=== PATIENT | male | born 1935 | race Caucasian/White ===

== ENCOUNTER 2018-01-19 06:46 | Emergency (ER) | payer MEDICARE, OTHER ==
--- NOTE | 2018-01-19 08:07 | ER Document Report ---
ED General - General Chief Complaint: Abrasion(s) Stated Complaint: LACERATION Time Seen by Provider: 01/19/18 07:55 Mode of Arrival: Ambulatory Information source: Patient Notes: 83-year-old male with hypertension, hyperlipidemia, previous aortic valve surgery presents with an skin tear to his right elbow. Patient states that yesterday he tripped and fell in his home landing on the rug. He states that he did not hit his head or have any preceding chest pain, dizziness, shortness of breath. Patient attempted to clean the wound but states it continued to bleed. He is currently on Pradaxa. TRAVEL OUTSIDE OF THE [place] IN LAST 30 DAYS: No - HPI Onset: Yesterday Onset/Duration: Gradual Quality of pain: Achy Severity: Mild Associated symptoms: None Exacerbated by: Denies Relieved by: Denies Similar symptoms previously: No Recently seen / treated by doctor: No - Related Data Allergies/Adverse Reactions: No Known Allergies Allergy (Verified 08/21/14 11:11) Past Medical History - General Information source: Patient - Social History Smoking Status: Never Smoker Frequency of alcohol use: Occasional Drug Abuse: None Lives with: Family Family History: Reviewed & Not Pertinent Patient has suicidal ideation: No Patient has homicidal ideation: No - Past Medical History Cardiac Medical History: Reports: Hx Hypercholesterolemia, Hx Hypertension - adalat toprol Denies: Hx Heart Attack Pulmonary Medical History: Denies: Hx Asthma Neurological Medical History: Denies: Hx Cerebrovascular Accident, Hx Seizures GI Medical History: Denies: Hx Hepatitis, Hx Hiatal Hernia, Hx Ulcer Musculoskeletal Medical History: Infectious Medical History: Denies: Hx Hepatitis Past Surgical History: Reports: Hx Cardiac Surgery - Open Heart; Aorta and Valve involvment, Hx Orthopedic Surgery - Bilat knee replacements, Left rotoator cuff, right shoulder hardware. Denies: Hx Open Heart Surgery, Hx Pacemaker - Immunizations Hx Diphtheria, Pertussis, Tetanus Vaccination: Yes Review of Systems - Review of Systems Notes: REVIEW OF SYSTEMS: CONSTITUTIONAL : Denies fever, chills, or sweats. Denies recent illness. Denies weight loss, recent hospitalizations. EENT: Denies visual changes, eye pain. Denies nasal or sinus congestion or discharge. Denies sore throat, oral lesions, difficulty swallowing. CARDIOVASCULAR: Denies chest pain. Denies palpitations. Denies lower extremity edema. RESPIRATORY: Denies cough, cold, or chest congestion. Denies shortness of breath, wheezing. GASTROINTESTINAL: Denies abdominal pain or distention. Denies nausea, vomiting , or diarrhea. Denies blood in vomitus, stools, or per rectum. Denies black, tarry stools. Denies constipation. GENITOURINARY: Denies difficulty urinating, painful urination, frequency, blood in urine, or vaginal discharge. MUSCULOSKELETAL: Denies back or neck pain or stiffness. Denies joint pain or swelling. SKIN: + 4 cm skin tear of the right elbow HEMATOLOGIC : Denies easy bruising or bleeding. LYMPHATIC: Denies swollen glands. NEUROLOGICAL: Denies confusion or altered mental status. Denies passing out or loss of consciousness. Denies dizziness or lightheadedness. Denies headache. Denies weakness or paralysis. Denies problems difficulty with ambulation, slurred speech. Denies sensory loss, numbness, or tingling. Denies seizures. PSYCHIATRIC: Denies anxiety or stress. Denies depression, suicidal ideation, or homicidal ideation. Denies visual or auditory hallucinations. Physical Exam - Vital signs Vitals: Temp Pulse Resp BP Pulse Ox 98.1 F 68 18 122/62 98 01/19/18 06:51 01/19/18 06:51 01/19/18 06:51 01/19/18 06:51 01/19/18 06:51 Interpretation: No: Hypertensive, Febrile - Notes Notes: PHYSICAL EXAMINATION: GENERAL: Well-appearing, well-nourished and in no acute distress. HEAD: Atraumatic, normocephalic. EYES: Pupils equal round and reactive to light, extraocular movements intact, sclera anicteric, conjunctiva are normal. ENT: Nares patent, oropharynx clear without exudates. Moist mucous membranes. NECK: Normal range of motion, supple without lymphadenopathy LUNGS: Breath sounds clear to auscultation bilaterally and equal. No wheezes rales or rhonchi. HEART: Regular rate and rhythm without murmurs ABDOMEN: Soft, nontender, nondistended abdomen. No guarding, no rebound. No masses appreciated. Musculoskeletal: Normal range of motion, no pitting or edema. No cyanosis. Full range of motion of the right elbow. Radial pulse intact. Sensation intact. NEUROLOGICAL: Cranial nerves grossly intact. Normal speech, normal gait. Normal sensory, motor exams PSYCH: Normal mood, normal affect. SKIN: 4 cm skin tear of the right elbow with mild oozing blood Course - Re-evaluation Re-evalutation: 01/19/18 08:07 83-year-old male presents after a trip and fall yesterday where he sustained a large skin tear to the right elbow. Patient denies any head injury, loss of consciousness. He denies any preceding chest pain shortness of breath or dizziness. Patient was seen by myself upon arrival. Vital signs were reviewed. Patient is afebrile, normotensive and not hypoxic. Patient does not appear toxic or dehydrated. They are in no acute distress. Previous medical records and nursing notes reviewed. Significant findings include a large skin tear of the right elbow. Wound was thoroughly irrigated, Surgicel placed and a bulky dressing was also placed. Tetanus is up-to-date. Patient advised to leave the bandage on for the next 48 hours. Patient provided the opportunity to ask questions, and express concerns. Discharge instructions discussed. Patient is agreeable with discharge home. Return indications explained and discussed with the patient who displays understanding. Patient encouraged to return to the emergency department immediately with any concerns. - Vital Signs Vital signs: Temp Pulse Resp BP Pulse Ox 98.0 F 63 16 135/59 H 97 01/19/18 08:28 01/19/18 08:28 01/19/18 08:28 01/19/18 08:28 01/19/18 08:28 Discharge - Discharge Clinical Impression: Fall Qualifiers: Encounter type: initial encounter Qualified Code(s): W19.XXXA - Unspecified fall, initial encounter Elbow contusion Qualifiers: Encounter type: initial encounter Laterality: right Qualified Code(s): S50.01XA - Contusion of right elbow, initial encounter Skin tear of elbow without complication Qualifiers: Encounter type: initial encounter Laterality: right Qualified Code(s): S51.011A - Laceration without foreign body of right elbow, initial encounter Condition: Good Disposition: HOME, SELF-CARE Instructions: Antibiotic Ointment Protection ([facility]), Skin Tear ([facility]), Soap Cleansing ([facility]) Additional Instructions: Please leave bandage in place for the next 48 hours. Keep clean and dry. Afterwards cleaned normally. You can expect some of the skin to off. This will be replaced with new skin over the next few weeks. If he noticed increased pain or redness around the site please return to the emergency room. Referrals: JUDI ZULUAGA MD [Primary Care Provider] - Follow up as needed
[2018-01-19 08:30] VITALS: BP 135/59
== END 2018-01-19 08:30 | disposition home or self-care (01) ==
LOC: ER 06:46
DX: S51.011A Laceration without foreign body of right elbow, initial encounter (principal); S50.01XA Contusion of right elbow, initial encounter; W01.0XXA Fall on same level from slipping, tripping and stumbling without subsequent striking against object, initial encounter; Y92.009 Unspecified place in unspecified non-institutional (private) residence as the place of occurrence of the external cause; E78.00 Pure hypercholesterolemia, unspecified; I10 Essential (primary) hypertension; Z96.653 Presence of artificial knee joint, bilateral
CPT/HCPCS: 99282

== ENCOUNTER 2018-01-23 05:55 | Emergency (ER) | payer MEDICARE, OTHER ==
[2018-01-23] MEDS ORDERED: BACITRACIN ZINC OINTMENT 15 GM TP ONE (08:36)
[2018-01-23] MEDS ORDERED: VANCOMYCIN HCL INJ 1000 MG VIAL IV ONE (08:36)
[2018-01-23] MEDS ORDERED: PIPERACILLIN/TAZOBACTAM 3.375 GM VIAL IV ONE (08:36)
[2018-01-23 10:09] LABS: ABSOLUTE EOSINOPHILS # (AUTO) 0.3 10^3/uL (0.0-0.6); ABSOLUTE LYMPHOCYTES (AUTO) 0.9 10^3/uL (0.5-4.7); ABSOLUTE MONOCYTES (AUTO) 0.6 10^3/uL (0.1-1.4); ABSOLUTE NEUT (AUTO) 4.7 10^3/uL (1.7-8.2); BASOPHILS % (AUTO) 0.7 % (0-2); EOSINOPHILS % (AUTO) 4.4 % (0-6); HEMATOCRIT 37.2 % (37.9-51.0); HEMOGLOBIN 12.6 g/dL (13.5-17.0); LYMPHOCYTES % (AUTO) 13.9 % (13-45); MEAN CORPUSCULAR HEMOGLOBIN 32.1 pg (27.0-33.4); MEAN CORPUSCULAR HGB CONC 33.8 g/dL (32.0-36.0); MEAN CORPUSCULAR VOLUME 95 fl (80-97); MONOCYTES % (AUTO) 8.9 % (3-13); PLATELET COUNT 191 10^3/uL (150-450); RED BLOOD COUNT 3.92 10^6/uL (4.35-5.55); RED CELL DISTRIBUTION WIDTH 14.4 % (11.5-14.0); SEGMENTED NEUTROPHILS % (AUTO) 72.1 % (42-78); TOTAL CELLS COUNTED % (AUTO) 100 %; WHITE BLOOD COUNT 6.5 10^3/uL (4.0-10.5)
[2018-01-23 10:17] LABS: PROTHROMBIN TIME 14.8 SEC (11.4-15.4)
[2018-01-23 10:18] LABS: PARTIAL THROMBOPLASTIN TIME 36.6 SEC (23.5-35.8)
[2018-01-23 11:23] LABS: ALANINE AMINOTRANSFERASE 27 U/L (21-72); ALBUMIN 4.1 g/dL (3.5-5.0); ALKALINE PHOSPHATASE 64 U/L (38-126); ANION GAP 12 (5-19); ASPARTATE AMINO TRANSFERASE 41 U/L (17-59); BILIRUBIN,DIRECT 0.3 mg/dL (0.0-0.4); BLOOD UREA NITROGEN 16 mg/dL (7-20); CARBON DIOXIDE 27 mmol/L (22-30); CHLORIDE 103 mmol/L (98-107); GLUCOSE 104 mg/dL (75-110); POTASSIUM 4.2 mmol/L (3.6-5.0); SODIUM 141.8 mmol/L (137-145); TOTAL PROTEIN 7.3 g/dL (6.3-8.2)
--- NOTE | 2018-01-23 11:40 | ER Document Report ---
ED Wound - General Chief Complaint: Wound Recheck Stated Complaint: DRESSING CHANGE Time Seen by Provider: 01/23/18 06:48 Mode of Arrival: Ambulatory Information source: Patient TRAVEL OUTSIDE OF THE [place] IN LAST 30 DAYS: No - HPI Occurred: Last week Onset/Duration: Sudden Quality of pain: No pain Severity: None Pain Level: 0 Context: Injury Skin Temperature: Warm Skin Color: Normal Capillary refill: < 3 seconds Sensations intact: Yes Distal pulses present: Yes Associated Symptoms: Redness - Related Data Allergies/Adverse Reactions: No Known Allergies Allergy (Verified 08/21/14 11:11) Past Medical History - Social History Smoking Status: Never Smoker Family History: Reviewed & Not Pertinent Patient has suicidal ideation: No Patient has homicidal ideation: No - Past Medical History Cardiac Medical History: Reports: Hx Hypercholesterolemia, Hx Hypertension - adalat toprol Denies: Hx Heart Attack Pulmonary Medical History: Denies: Hx Asthma Neurological Medical History: Denies: Hx Cerebrovascular Accident, Hx Seizures Renal/ Medical History: Denies: Hx Peritoneal Dialysis GI Medical History: Denies: Hx Hepatitis, Hx Hiatal Hernia, Hx Ulcer Musculoskeletal Medical History: Infectious Medical History: Denies: Hx Hepatitis Past Surgical History: Reports: Hx Cardiac Surgery - Open Heart; Aorta and Valve involvment, Hx Orthopedic Surgery - Bilat knee replacements, Left rotoator cuff, right shoulder hardware. Denies: Hx Open Heart Surgery, Hx Pacemaker - Immunizations Hx Diphtheria, Pertussis, Tetanus Vaccination: Yes Review of Systems - Review of Systems Constitutional: denies: Chills, Fever EENT: No symptoms reported Cardiovascular: denies: Chest pain, Palpitations Respiratory: No symptoms reported Gastrointestinal: No symptoms reported Genitourinary: No symptoms reported Male Genitourinary: No symptoms reported Musculoskeletal: No symptoms reported Skin: Lesions Hematologic/Lymphatic: No symptoms reported Neurological/Psychological: No symptoms reported -: Yes All other systems reviewed and negative Physical Exam - Vital signs Vitals: Temp Pulse Resp BP Pulse Ox 97.9 F 64 18 120/60 97 01/23/18 05:56 01/23/18 05:56 01/23/18 05:56 01/23/18 05:56 01/23/18 05:56 - General General appearance: Appears well, Alert In distress: None - Respiratory Respiratory status: No respiratory distress Chest status: Nontender Breath sounds: Normal Chest palpation: Normal - Cardiovascular Rhythm: Regular Heart sounds: Normal auscultation Murmur: No - Abdominal Inspection: Normal Distension: No distension Bowel sounds: Normal Tenderness: Nontender Organomegaly: No organomegaly - Back Back: Normal, Nontender - Neurological Neuro grossly intact: Yes Cognition: Normal Orientation: AAOx4 [place] Coma Scale Eye Opening: Spontaneous [place] Coma Scale Verbal: Oriented [place] Coma Scale Motor: Obeys Commands [place] Coma Scale Total: 15 Speech: Normal Motor strength normal: LUE, RUE, LLE, RLE Sensory: Normal - Psychological Associated symptoms: Normal affect, Normal mood - Skin Skin Temperature: Warm Skin Moisture: Dry Skin Color: Erythema, Ecchymosis Skin Turgor: Loose Skin irregularity: Erythema Location of irregularity: Extremities Character of irregularity: Erythematous Irregularity with: Tenderness Course - Vital Signs Vital signs: Temp Pulse Resp BP Pulse Ox 97.9 F 84 16 138/84 H 99 01/23/18 05:56 01/23/18 12:10 01/23/18 12:10 01/23/18 12:10 01/23/18 12:10 - Laboratory Result Diagrams: 01/23/18 09:50 01/23/18 09:50 Laboratory results interpreted by me: 01/23/18 01/23/18 09:50 09:50 RBC 3.92 L Hgb 12.6 L Hct 37.2 L RDW 14.4 H APTT 36.6 H Discharge - Discharge Clinical Impression: Wound infection Condition: Stable Disposition: HOME, SELF-CARE Instructions: Delayed Wound Closure ([facility]), Dressing Instructions for Open Wounds ([facility]), Wound Infection ([facility]) Additional Instructions: Please follow-up at the wound clinic in 3 days for wound check. Return to the emergency room if her condition worsens. Prescriptions: Clindamycin HCl 300 mg PO TID 10 Days #30 capsule Referrals: JUDI ZULUAGA MD [Primary Care Provider] - Follow up as needed WOUND CARE [Outside] - Follow up as needed
[2018-01-23 13:02] VITALS: BP 138/84
== END 2018-01-23 12:14 | disposition home or self-care (01) ==
LOC: ER 05:55
DX: T14.8XXA Other injury of unspecified body region, initial encounter (principal); L08.9 Local infection of the skin and subcutaneous tissue, unspecified; X58.XXXA Exposure to other specified factors, initial encounter; I10 Essential (primary) hypertension
CPT/HCPCS: 99283; 96365; 96367; 36415; 87040; 87070; 87205; 85025; 85610; 85730; 87077; 80053; 87186; J3490; J3370; J2543

== ENCOUNTER 2018-12-09 01:44 | Inpatient (IN) | payer MEDICARE, OTHER ==
--- NOTE | 2018-12-09 02:35 | ER Document Report ---
ED General - General Chief Complaint: Passed Out Prior to Arrival Stated Complaint: WEAKNESS Time Seen by Provider: 12/09/18 02:34 Notes: Patient is a pleasant 83-year-old male who presents with complaint of increasing swelling in his legs, feeling of chills and feeling unwell starting tonight. He did have a previous episode of syncope back on December 04. He says he passed out when he went to stand up. He has not had any further syncopal episodes or dizziness upon standing since then. He says been doing well since then other than he has increased swelling in his legs over the last 24-48 hrs. He says this is happened in the past. He does have a history of atrial flutter. He is on Pradaxa and metoprolol for that. He denies any cough or congestion. Denies any difficulty breathing. No dysuria. No abdominal pain. No chest pain. No other complaints at this time. TRAVEL OUTSIDE OF THE [place] IN LAST 30 DAYS: No - Related Data Allergies/Adverse Reactions: No Known Allergies Allergy (Verified 08/21/14 11:11) Past Medical History - Social History Smoking Status: Unknown if Ever Smoked Frequency of alcohol use: None Drug Abuse: None Family History: Reviewed & Not Pertinent - Past Medical History Cardiac Medical History: Reports: Hx Hypercholesterolemia, Hx Hypertension - adalat toprol Denies: Hx Heart Attack Pulmonary Medical History: Denies: Hx Asthma Neurological Medical History: Denies: Hx Cerebrovascular Accident, Hx Seizures Renal/ Medical History: Denies: Hx Peritoneal Dialysis GI Medical History: Denies: Hx Hepatitis, Hx Hiatal Hernia, Hx Ulcer Musculoskeletal Medical History: Infectious Medical History: Denies: Hx Hepatitis Past Surgical History: Reports: Hx Cardiac Surgery - Open Heart; Aorta and Valve involvment, Hx Orthopedic Surgery - Bilat knee replacements, Left rotoator cuff, right shoulder hardware. Denies: Hx Open Heart Surgery, Hx Pacemaker - Immunizations Hx Diphtheria, Pertussis, Tetanus Vaccination: Yes Review of Systems - Review of Systems Notes: My Normal Review Basic REVIEW OF SYSTEMS: CONSTITUTIONAL : Chills starting tonight. EENT: Denies eye, ear, throat, or mouth pain or symptoms. Denies nasal or sinus congestion. CARDIOVASCULAR: Denies chest pain. RESPIRATORY: Denies cough, cold, or chest congestion. Denies shortness of breath, difficulty breathing, or wheezing. GASTROINTESTINAL: Denies abdominal pain. Denies nausea, vomiting, or diarrhea. GENITOURINARY: Denies difficulty urinating, painful urination, burning, frequency, or blood in urine. MUSCULOSKELETAL: Lower extremity edema SKIN: Denies rash or skin lesions. HEMATOLOGIC : On Pradaxa NEUROLOGICAL: Denies altered mental status or loss of consciousness. Denies headache. Denies weakness or paralysis or loss of use of either side. Denies problems with gait or speech. Denies sensory or motor loss. ALL OTHER SYSTEMS REVIEWED AND NEGATIVE. Physical Exam - Vital signs Vitals: Resp BP Pulse Ox 20 107/74 94 12/09/18 02:21 12/09/18 02:21 12/09/18 02:21 - Notes Notes: General Appearance: Well nourished, alert, cooperative, no acute distress, no obvious discomfort. Vitals: reviewed, See vital signs table. Eyes: PERRL, EOMI, Conjuctiva clear Mouth: No decreasd moisture Throat: No tonsillar inflammation, No airway obstruction, No lymphadenopathy Neck: Supple, no neck tenderness, No thyromegaly Lungs: No wheezing, No rales, No rhonci, No accessory muscle use, good air exchange bilaterally. Heart: Rapid irregular heartbeat Abdomen: Normal BS, soft, No rigidity, No abdominal tenderness, No guarding, no rebound, no abdominal masses, no organomegaly Extremities: strength 5/5 in all extremities, good pulses in all extremities, no swelling or tenderness in the extremities, 2+ bilateral lower extremity edema. Skin: warm, dry, appropriate color, no rash Neuro: speech clear, oriented x 3, normal affect, responds appropriately to questions. Course - Re-evaluation Re-evalutation: 12/09/18 08:38 Exact cause of patient's fever is unclear. After fever resolved she still had A. fib with RVR and therefore I did order Cardizem drip. I did speak with the hospitalist, Dr. Falcon, who agreed to evaluate the patient. Dr. Falcon went to evaluate the patient he was started having borderline low blood pressure and therefore Cardizem was not given and he decided given digoxin instead. He is to admit the patient to his service for further work-up. Patient was agreeable plan. Patient otherwise is medically stable and is denying any chest pain or shortness of breath. I did give a small dose of Lasix due to the increasing swelling in his legs. I suspect that the increase in swelling is related to his A. fib with RVR. Patient not given anticoagulation as he is already anticoagulated with Pradaxa. Dictation of this chart was performed using voice recognition software; therefore, there may be some unintended grammatical errors. - Vital Signs Vital signs: Temp Pulse Resp BP Pulse Ox 98.7 F 21 H 107/61 97 12/09/18 07:01 12/09/18 07:41 12/09/18 07:41 12/09/18 07:41 - Laboratory Result Diagrams: 12/09/18 03:11 12/09/18 03:11 Laboratory results interpreted by me: 12/09/18 12/09/18 12/09/18 03:11 03:11 03:11 WBC 12.3 H RBC 4.29 L Seg Neuts % (Manual) 93 H Lymphocytes % (Manual) 4 L Monocytes % (Manual) 2 L Abs Neuts (Manual) 11.4 H Sodium 133.1 L BUN 24 H Total Bilirubin 1.6 H AST 62 H Creatine Kinase 220 H NT-Pro-B Natriuret Pep Urine Ketones 12/09/18 12/09/18 03:11 03:55 WBC RBC Seg Neuts % (Manual) Lymphocytes % (Manual) Monocytes % (Manual) Abs Neuts (Manual) Sodium BUN Total Bilirubin AST Creatine Kinase NT-Pro-B Natriuret Pep 2130 H Urine Ketones 25 H - EKG Interpretation by Me Additional EKG results interpreted by me: 12/09/18 02:35 EKG is reviewed and interpreted by me. EKG shows A. fib with a rate of [address] segment elevation or depression. No ischemic T wave inversions. QRS duration and QT intervals are within normal range. Old EKG for comparison is from August 21, 2014. Discharge - Discharge Clinical Impression: Atrial fibrillation with RVR, Leg edema Fever Qualifiers: Fever type: unspecified Qualified Code(s): R50.9 - Fever, unspecified Condition: Stable Disposition: ADMITTED OBSERVATION Admitting Provider: Ezekiel (Hospitalist) Unit Admitted: [facility]
[2018-12-09] MEDS ORDERED: FUROSEMIDE INJ/PF 20 MG/2 ML SDV IV ONE (02:43)
[2018-12-09] MEDS ORDERED: ACETAMINOPHEN 325 MG TABLET PO ONE (02:47)
[2018-12-09 03:31] LABS: HEMATOCRIT 40.6 % (37.9-51.0); HEMOGLOBIN 13.7 g/dL (13.5-17.0); MEAN CORPUSCULAR HGB CONC 33.9 g/dL (32.0-36.0); MEAN CORPUSCULAR VOLUME 95 fl (80-97); PLATELET COUNT 161 10^3/uL (150-450); RED BLOOD COUNT 4.29 10^6/uL (4.35-5.55); RED CELL DISTRIBUTION WIDTH 13.9 % (11.5-14.0); WHITE BLOOD COUNT 12.3 10^3/uL (4.0-10.5)
[2018-12-09 03:45] LABS: ALANINE AMINOTRANSFERASE 44 U/L (21-72); ALBUMIN 3.7 g/dL (3.5-5.0); ALKALINE PHOSPHATASE 47 U/L (38-126); ANION GAP 9 (5-19); ASPARTATE AMINO TRANSFERASE 62 U/L (17-59); BILIRUBIN,DIRECT 0.3 mg/dL (0.0-0.4); BILIRUBIN,TOTAL 1.6 mg/dL (0.2-1.3); BLOOD UREA NITROGEN 24 mg/dL (7-20); CALCIUM 8.6 mg/dL (8.4-10.2); CARBON DIOXIDE 26 mmol/L (22-30); CHLORIDE 98 mmol/L (98-107); GLUCOSE 87 mg/dL (75-110); POTASSIUM 4.2 mmol/L (3.6-5.0); SODIUM 133.1 mmol/L (137-145); TOTAL PROTEIN 6.4 g/dL (6.3-8.2)
[2018-12-09 03:58] LABS: ABSOLUTE LYMPHOCYTES# (MANUAL) 0.5 10^3/uL (0.5-4.7); ABSOLUTE MONOCYTES # (MANUAL) 0.2 10^3/uL (0.1-1.4); BASOPHILS % (MANUAL) 0 % (0-2); EOSINOPHILS % (MANUAL) 1 % (0-6); LYMPHOCYTES % (MANUAL) 4 % (13-45); MONOCYTES % (MANUAL) 2 % (3-13); SEGMENTED NEUTROPHILS % (MAN) 93 % (42-78); TOTAL CELLS COUNTED 100
[2018-12-09 04:00] LABS: OVALOCYTES 1+; TEAR DROP CELLS SLIGHT; TOXIC GRANULATION SLIGHT; TOXIC VACUOLATION PRESENT
[2018-12-09 04:01] LABS: PLATELET COMMENT ADEQUATE
[2018-12-09 04:22] LABS: APPEARANCE,URINE CLEAR; BILIRUBIN,URINE NEGATIVE (NEGATIVE); COLOR,URINE YELLOW; GLUCOSE, URINE NEGATIVE (NEGATIVE); KETONES,URINE 25 mg/dL (NEGATIVE); LEUKOCYTE ESTERASE,URINE NEGATIVE (NEGATIVE); NITRITE,URINE NEGATIVE (NEGATIVE); PROTEIN,URINE NEGATIVE (NEGATIVE); URINE SPECIFIC GRAVITY 1.014; UROBILINOGEN,URINE NEGATIVE mg/dL (<2.0)
--- NOTE | 2018-12-09 04:24 | RADIOLOGY REPORT (SQ) ---
EXAM DESCRIPTION: XR CHEST 1 VIEW COMPLETED DATE/TME: 12/09/2018 02:43 CLINICAL HISTORY: 83 years, Male, fever COMPARISON: 08/21/2014 NUMBER OF VIEWS: One TECHNIQUE: AP view the chest LIMITATIONS: None. FINDINGS: Lungs demonstrate prominent interstitial opacities, similar to the prior. No focal consolidation. The heart is enlarged. There is no pneumothorax or pleural effusion. The bones are unchanged. IMPRESSION: Prominent interstitial opacities, similar to the prior, which may represent chronic changes or mild interstitial edema. copyright 2010 [employer]- All Rights Reserved
[2018-12-09] MEDS ORDERED: DILTIAZEM HCL INJ 25 MG/5 ML VIAL IV ONE ×2 (04:34→18:45)
[2018-12-09] MEDS ORDERED: DILTIAZEM HCL/D5W 125 MG/125 ML RTUINJ IV PRN (04:34)
[2018-12-09] MEDS: DIGOXIN INJ 0.5 MG/2 ML AMPULE IV ONE ×2 (05:21→07:02)
[2018-12-09] MEDS ORDERED: MAG HYDROX/AL HYDROX/SIMETH SUSP 30 ML UDCUP PO PRN (05:22)
[2018-12-09] MEDS ORDERED: ACETAMINOPHEN 325 MG TABLET PO PRN (05:22)
[2018-12-09] MEDS ORDERED: NORMAL SALINE 1000 ML 1,000 ML IV ONE ×2 (05:24→05:50)
--- NOTE | 2018-12-09 05:32 | PDOC H&P ---
History of Present Illness Admission Date/PCP: JUDI ZULUAGA MD Patient complains of: Syncope History of Present Illness: BRANDT DEJESUS is a 83 year old male with a past medical history of paroxysmal atrial fibrillation on Eliquis, coronary artery disease, congestive heart failure, bioprosthetic aortic valve. Patient presents with a syncopal episode 6 days ago with subsequent palpitations and lower extremity edema. He denies chest pain nausea vomiting shortness of breath or diaphoresis. In the emergency room is found to be in A. fib with RVR and hypotensive blood pressure in the 80s. He receives an order for IV Cardizem and referred to the spitalist for admission. He denies recent change of medications and otherwise compliant with medication regiment. Past Medical History Cardiac Medical History: Reports: Atrial Fibrillation, Hyperlipidema, Hypertension - adalat toprol, Other - Prosthetic aortic valve Denies: Myocardial Infarction Pulmonary Medical History: Denies: Asthma Neurological Medical History: Denies: Seizures GI Medical History: Denies: Hepatitis, Hiatal Hernia Musculoskeltal Medical History: Hematology: Denies: Anemia, Sickle Cell Disease Past Surgical History Past Surgical History: Reports: Orthopedic Surgery - Bilat knee replacements, Left rotoator cuff, right shoulder hardware, Valve Replacement - Aortic valve Denies: Pacemaker Social History Information Source: Patient Lives with: Alone Smoking Status: Unknown if Ever Smoked Frequency of Alcohol Use: None Hx Recreational Drug Use: No Drugs: None - Advance Directive Resuscitation Status: Full Code Family History Family History: Hypertension Parental Family History Reviewed: Yes Children Family History Reviewed: Yes Sibling(s) Family History Reviewed.: Yes Medication/Allergy Home Medications: Moxifloxacin HCl [Vigamox 0.5% Oph Soln 3 ml] 1 drop OP TID #1 bottle 09/22/13 Naproxen 500 mg PO Q12 #30 tablet 08/21/14 Tramadol HCl [Ultram] 50 mg PO Q6HP PRN #20 tablet 08/21/14 Clindamycin HCl 300 mg PO TID 10 Days #30 capsule 01/23/18 Allergies/Adverse Reactions: No Known Allergies Allergy (Verified 08/21/14 11:11) Review of Systems Constitutional: PRESENT: as per HPI, fatigue, weakness, weight gain Eyes: ABSENT: visual disturbances Ears: ABSENT: hearing changes Cardiovascular: PRESENT: as per HPI, edema, palpitations. ABSENT: dyspnea on exertion Respiratory: ABSENT: cough, hemoptysis Gastrointestinal: ABSENT: abdominal pain, constipation, diarrhea, hematemesis, hematochezia, nausea, vomiting Genitourinary: ABSENT: dysuria, hematuria Musculoskeletal: ABSENT: joint swelling Integumentary: ABSENT: rash, wounds Neurological: ABSENT: abnormal gait, abnormal speech, confusion, dizziness, f ocal weakness, syncope Psychiatric: ABSENT: anxiety, depression, homidical ideation, suicidal ideation Endocrine: ABSENT: cold intolerance, heat intolerance, polydipsia, polyuria Hematologic/Lymphatic: ABSENT: easy bleeding, easy bruising Physical Exam Vital Signs: Temp Pulse Resp BP Pulse Ox 23 H 95/73 L 92 12/09/18 04:53 12/09/18 04:53 12/09/18 04:53 General appearance: PRESENT: cooperative, mild distress, well-developed, well- nourished Head exam: PRESENT: atraumatic, normocephalic Eye exam: PRESENT: conjunctiva pink, EOMI, PERRLA. ABSENT: scleral icterus Ear exam: PRESENT: normal external ear exam Mouth exam: PRESENT: moist, tongue midline Neck exam: ABSENT: carotid bruit, JVD, lymphadenopathy, thyromegaly Respiratory exam: PRESENT: clear to auscultation yaya. ABSENT: rales, rhonchi, wheezes Cardiovascular exam: PRESENT: irregular rhythm, +S1, +S2, systolic murmur. ABSENT: diastolic murmur, gallop Pulses: PRESENT: normal dorsalis pedis pul Vascular exam: PRESENT: normal capillary refill GI/Abdominal exam: PRESENT: normal bowel sounds, soft. ABSENT: distended, guarding, mass, organolmegaly, rebound, tenderness Rectal exam: PRESENT: deferred Extremities exam: PRESENT: full ROM, +1 edema. ABSENT: calf tenderness, clubbing, pedal edema Neurological exam: PRESENT: alert, awake, oriented to person, oriented to place, oriented to time, oriented to situation, CN II-XII grossly intact. ABSENT: motor sensory deficit Psychiatric exam: PRESENT: appropriate affect, normal mood. ABSENT: homicidal ideation, suicidal ideation Skin exam: PRESENT: dry, intact, warm. ABSENT: cyanosis, rash Results Laboratory Results: 12/09/18 03:11 12/09/18 03:11 12/09/18 12/09/18 12/09/18 03:11 03:11 03:55 WBC 12.3 H RBC 4.29 L Hgb 13.7 Hct 40.6 MCV 95 MCH 32.0 MCHC 33.9 RDW 13.9 Plt Count 161 Seg Neutrophils % Not Reportable Lymphocytes % Not Reportable Monocytes % Not Reportable Eosinophils % Not Reportable Basophils % Not Reportable Absolute Neutrophils Not Reportable Absolute Lymphocytes Not Reportable Absolute Monocytes Not Reportable Absolute Eosinophils Not Reportable Absolute Basophils Not Reportable Sodium 133.1 L Potassium 4.2 Chloride 98 Carbon Dioxide 26 Anion Gap 9 BUN 24 H Creatinine 0.91 Est GFR ( Amer) > 60 Est GFR (Non-Af Amer) > 60 Glucose 87 Calcium 8.6 Total Bilirubin 1.6 H AST 62 H ALT 44 Alkaline Phosphatase 47 Total Protein 6.4 Albumin 3.7 Urine Color YELLOW Urine Appearance CLEAR Urine pH 6.0 Ur Specific [place] 1.014 Urine Protein NEGATIVE Urine Glucose (UA) NEGATIVE Urine Ketones 25 H Urine Blood NEGATIVE Urine Nitrite NEGATIVE Ur Leukocyte Esterase NEGATIVE Urine WBC (Auto) 0 Urine RBC (Auto) 1 12/09/18 03:11 Troponin I < 0.012 Impressions: Chest X-Ray 12/09/18 02:43 IMPRESSION: Prominent interstitial opacities, similar to the prior, which may represent chronic changes or mild interstitial edema. copyright 2010 [employer]- All Rights Reserved Assessment and Plan - Diagnosis (1) Atrial fibrillation with RVR Is this a current diagnosis for this admission?: Yes Plan: On Pradaxa suboptimal control, trial digoxin, resume outpatient regiment, follow-up cardiology consult TSH (2) Fever Qualifiers: Fever type: unspecified Qualified Code(s): R50.9 - Fever, unspecified Is this a current diagnosis for this admission?: Yes Plan: Brief single episode no focal complaints observation for repeat fever and consideration of work-up (3) Leg edema Is this a current diagnosis for this admission?: Yes Plan: Secondary to #1, compression stockings - Time Time Spent with patient: 25-34 minutes - Inpatient Certification Medical Necessity: Need Close Monitoring Due to Risk of Patient Decompensation
[2018-12-09] MEDS ORDERED: ALBUTEROL SULFATE HFA (90 MCG/PUFF) 200 PUFF/8.5 GM MDI IH PRN (16:28)
[2018-12-09] MEDS ORDERED: FUROSEMIDE 40 MG TABLET PO ONE (16:45)
[2018-12-09] MEDS ORDERED: METOPROLOL TARTRATE 25 MG TABLET PO ONE (16:45)
[2018-12-09] MEDS ORDERED: EZETIMIBE 10 MG TABLET PO ONE (17:00)
[2018-12-09] MEDS ORDERED: FLUTICASONE/VILANTEROL 200-25 MCG/DOSE IH ONE (17:13)
[2018-12-09] MEDS ORDERED: TIOTROPIUM BROMIDE DPI 5 CAP/KIT (18 MCG/CAP) IH ONE (17:13)
[2018-12-09] MEDS: OMEGA-3 ACID ETHYL ESTERS 1 GM CAPSULE PO SCH (17:26)
[2018-12-09] MEDS: FERROUS SULFATE 325 MG TABLET PO SCH (17:26)
[2018-12-09] MEDS: TIOTROPIUM BROMIDE DPI 5 CAP/KIT (18 MCG/CAP) IH ONE ×2 (17:27→17:33)
[2018-12-09] MEDS: FLUTICASONE/VILANTEROL 200-25 MCG/DOSE IH ONE ×2 (17:27→17:32)
--- NOTE | 2018-12-09 17:38 | PDOC PROGRESS REPORT ---
Subjective Progress Note for:: 12/09/18 Subjective:: This is an 83 yr old male with a PMH of paroxysmal atrial fibrillation on Pradaxa, coronary artery disease, congestive heart failure, and bioprosthetic aortic valve who presented with a syncopal episode (6 days ago) and recent palpitations and increasing pedal edema. He was found to be in Afib w/ RVR on presentation with hypotension in the 80 systolic. He was given digoxin and 5 mg of IV cardizem in the ER. Cardizem drip was ordered but not started as patient's heart rate improved down to the 70-80s. Upon encounter, he looks comfortable. He is currently in atrial flutter with a heart rate in the high 70s. Blood pressures have improved to 130/80s. He denies any chest pain or shortness of breath in the morning. He says that his pedal edema is better this morning. He says he follows up with the manager technical training and [place]. Will request records from his manager technical training. Reason For Visit: AFIB HYPOTENSION Physical Exam Vital Signs: Temp Pulse Resp BP Pulse Ox 98.5 F 22 H 131/69 H 96 12/09/18 13:43 12/09/18 13:01 12/09/18 13:01 12/09/18 13:01 Intake & Output 12/08/18 12/09/18 12/10/18 06:59 06:59 06:59 Intake Total 1999 Balance 1999 Weight 198 lb 6.656 oz General appearance: PRESENT: no acute distress, well-developed, well-nourished Head exam: PRESENT: atraumatic, normocephalic Eye exam: PRESENT: conjunctiva pink, EOMI, PERRLA. ABSENT: scleral icterus Ear exam: PRESENT: normal external ear exam Mouth exam: PRESENT: moist, tongue midline Neck exam: ABSENT: carotid bruit, JVD, lymphadenopathy, thyromegaly Respiratory exam: PRESENT: clear to auscultation yaya. ABSENT: rales, rhonchi, wheezes Cardiovascular exam: PRESENT: irregular rhythm. ABSENT: diastolic murmur, rubs, systolic murmur Pulses: PRESENT: normal dorsalis pedis pul GI/Abdominal exam: PRESENT: normal bowel sounds, soft. ABSENT: distended, guarding, mass, organolmegaly, rebound, tenderness Rectal exam: PRESENT: deferred Extremities exam: PRESENT: +1 edema Neurological exam: PRESENT: alert, awake, oriented to person, oriented to place, oriented to time, oriented to situation, CN II-XII grossly intact. ABSENT: motor sensory deficit Results Laboratory Results: 12/09/18 03:11 12/09/18 03:11 12/09/18 12/09/18 12/09/18 03:11 03:11 03:11 WBC 12.3 H RBC 4.29 L Hgb 13.7 Hct 40.6 MCV 95 MCH 32.0 MCHC 33.9 RDW 13.9 Plt Count 161 Seg Neutrophils % Not Reportable Lymphocytes % Not Reportable Monocytes % Not Reportable Eosinophils % Not Reportable Basophils % Not Reportable Absolute Neutrophils Not Reportable Absolute Lymphocytes Not Reportable Absolute Monocytes Not Reportable Absolute Eosinophils Not Reportable Absolute Basophils Not Reportable Sodium 133.1 L Potassium 4.2 Chloride 98 Carbon Dioxide 26 Anion Gap 9 BUN 24 H Creatinine 0.91 Est GFR ( Amer) > 60 Est GFR (Non-Af Amer) > 60 Glucose 87 Calcium 8.6 Magnesium 1.9 Total Bilirubin 1.6 H AST 62 H ALT 44 Alkaline Phosphatase 47 Total Protein 6.4 Albumin 3.7 TSH Urine Color Urine Appearance Urine pH Ur Specific [place] Urine Protein Urine Glucose (UA) Urine Ketones Urine Blood Urine Nitrite Ur Leukocyte Esterase Urine WBC (Auto) Urine RBC (Auto) 12/09/18 12/09/18 03:11 03:55 WBC RBC Hgb Hct MCV MCH MCHC RDW Plt Count Seg Neutrophils % Lymphocytes % Monocytes % Eosinophils % Basophils % Absolute Neutrophils Absolute Lymphocytes Absolute Monocytes Absolute Eosinophils Absolute Basophils Sodium Potassium Chloride Carbon Dioxide Anion Gap BUN Creatinine Est GFR ( Amer) Est GFR (Non-Af Amer) Glucose Calcium Magnesium Total Bilirubin AST ALT Alkaline Phosphatase Total Protein Albumin TSH 1.75 Urine Color YELLOW Urine Appearance CLEAR Urine pH 6.0 Ur Specific [place] 1.014 Urine Protein NEGATIVE Urine Glucose (UA) NEGATIVE Urine Ketones 25 H Urine Blood NEGATIVE Urine Nitrite NEGATIVE Ur Leukocyte Esterase NEGATIVE Urine WBC (Auto) 0 Urine RBC (Auto) 1 12/09/18 12/09/18 12/09/18 03:11 03:11 03:11 Creatine Kinase 220 H Troponin I < 0.012 NT-Pro-B Natriuret Pep 2130 H 12/09/18 09:00 Creatine Kinase Troponin I 0.013 NT-Pro-B Natriuret Pep Impressions: Chest X-Ray 12/09/18 02:43 IMPRESSION: Prominent interstitial opacities, similar to the prior, which may represent chronic changes or mild interstitial edema. copyright 2011 [employer]- All Rights Reserved Assessment and Plan - Diagnosis (1) Atrial fibrillation with RVR Is this a current diagnosis for this admission?: Yes Plan: Now rate-controlled. Given lanoxin and 5 mg of IV cardizem in the ER. Will resume home lopressor. Resume Pradaxa. BP in the 130/80s. (2) CHF (congestive heart failure) Qualifiers: Heart failure type: systolic Heart failure chronicity: acute on chronic Qualified Code(s): I50.23 - Acute on chronic systolic (congestive) heart failure Is this a current diagnosis for this admission?: Yes Plan: He received IV Lasix in the ER. Resume home dose of Lasix. - Time Time Spent with patient: 25-34 minutes
[2018-12-09] MEDS ORDERED: SIMVASTATIN 40 MG TABLET PO SCH (18:00)
[2018-12-09] MEDS ORDERED: VANCOMYCIN HCL 0 MG in DEXTROSE 5%-WATER 250 ML IV NR (18:15)
[2018-12-09] MEDS ORDERED: VANCOMYCIN HCL INJ 1000 MG VIAL ONE (18:58)
--- NOTE | 2018-12-09 19:19 | EKG REPORT ---
SEVERITY:- ABNORMAL ECG - ATRIAL FIBRILLATION, V-RATE 87-133 LEFT AXIS DEVIATION : Confirmed by: Jami Mills 09-Dec-2018 19:18:48
[2018-12-09] MEDS: VANCOMYCIN HCL 1,000 MG in DEXTROSE 5%-WATER 250 ML IV SCH (19:44)
[2018-12-09] MEDS: SIMVASTATIN 40 MG TABLET PO SCH (21:38)
[2018-12-09] MEDS ORDERED: DABIGATRAN ETEXILATE 150 MG CAPSULE PO ONE (22:00)
[2018-12-10] MEDS: VANCOMYCIN HCL 1,000 MG in DEXTROSE 5%-WATER 250 ML IV SCH ×2 (06:00→17:44)
[2018-12-10 06:18] LABS: ABSOLUTE BASOPHILS # (AUTO) 0.1 10^3/uL (0.0-0.2); ABSOLUTE EOSINOPHILS # (AUTO) 0.1 10^3/uL (0.0-0.6); ABSOLUTE LYMPHOCYTES (AUTO) 0.5 10^3/uL (0.5-4.7); ABSOLUTE MONOCYTES (AUTO) 0.6 10^3/uL (0.1-1.4); ABSOLUTE NEUT (AUTO) 7.5 10^3/uL (1.7-8.2); BASOPHILS % (AUTO) 0.8 % (0-2); EOSINOPHILS % (AUTO) 0.8 % (0-6); HEMATOCRIT 37.7 % (37.9-51.0); HEMOGLOBIN 12.8 g/dL (13.5-17.0); LYMPHOCYTES % (AUTO) 5.3 % (13-45); MEAN CORPUSCULAR HEMOGLOBIN 31.8 pg (27.0-33.4); MEAN CORPUSCULAR VOLUME 94 fl (80-97); MONOCYTES % (AUTO) 6.4 % (3-13); PLATELET COUNT 129 10^3/uL (150-450); RED BLOOD COUNT 4.02 10^6/uL (4.35-5.55); RED CELL DISTRIBUTION WIDTH 14.3 % (11.5-14.0); SEGMENTED NEUTROPHILS % (AUTO) 86.7 % (42-78); TOTAL CELLS COUNTED % (AUTO) 100 %; WHITE BLOOD COUNT 8.7 10^3/uL (4.0-10.5)
[2018-12-10 06:50] LABS: ANION GAP 6 (5-19); BLOOD UREA NITROGEN 16 mg/dL (7-20); CARBON DIOXIDE 29 mmol/L (22-30); CHLORIDE 100 mmol/L (98-107); GLUCOSE 105 mg/dL (75-110); POTASSIUM 3.7 mmol/L (3.6-5.0); SODIUM 134.8 mmol/L (137-145)
[2018-12-10] MEDS: FLUTICASONE/VILANTEROL 200-25 MCG/DOSE IH SCH (09:16)
[2018-12-10] MEDS: METOPROLOL TARTRATE 25 MG TABLET PO SCH ×2 (09:17→21:17)
[2018-12-10] MEDS: DABIGATRAN ETEXILATE 150 MG CAPSULE PO SCH ×2 (09:17→21:17)
[2018-12-10] MEDS: OMEGA-3 ACID ETHYL ESTERS 1 GM CAPSULE PO SCH ×2 (09:17→17:44)
[2018-12-10] MEDS: TIOTROPIUM BROMIDE DPI 5 CAP/KIT (18 MCG/CAP) IH SCH (09:17)
[2018-12-10] MEDS: EZETIMIBE 10 MG TABLET PO SCH (09:17)
[2018-12-10] MEDS: FERROUS SULFATE 325 MG TABLET PO SCH ×2 (09:17→17:44)
[2018-12-10] MEDS: FUROSEMIDE 40 MG TABLET PO SCH (09:18)
[2018-12-10] MEDS: POTASSIUM CHLORIDE 10 MEQ CAPSULE.ER PO SCH (09:18)
--- NOTE | 2018-12-10 14:49 | PDOC PROGRESS REPORT ---
Subjective Progress Note for:: 12/10/18 Subjective:: This is an 83 yr old male with a PMH of paroxysmal atrial fibrillation on Pradaxa, coronary artery disease, congestive heart failure, and bioprosthetic aortic valve who presented with a syncopal episode (6 days ago) and recent palpitations and increasing pedal edema. He was found to be in Afib w/ RVR on presentation with hypotension in the 80 systolic. He was given digoxin and 5 mg of IV cardizem in the ER. Cardizem drip was ordered but not started as patient's heart rate improved down to the 70-80s. Upon encounter, he looks comfortable. He is currently in atrial flutter with a heart rate in the high 70s. Blood pressures have improved to 130/80s. He denies any chest pain or shortness of breath in the morning. He says that his pedal edema is better this morning. He says he follows up with the culture manager and [place]. Will request records from his culture manager. 12/10: No acute event overnight. He denies chest pain or shortness of breath. He is currently rate controlled in the 70s. Blood pressures are stable. His blood cultures however are initially growing gram-positive cocci 2/2 bottles. No significant signs of bacteremia identified. But with his bioprosthetic aortic valve, will order 2D echo to assess for vegetations. He was also started on IV antibiotics empirically. Reason For Visit: AFIB HYPOTENSION Physical Exam Vital Signs: Temp Pulse Resp BP Pulse Ox 98.6 F 76 16 124/82 96 12/10/18 11:29 12/10/18 11:29 12/10/18 11:29 12/10/18 11:29 12/10/18 11:29 Intake & Output 12/09/18 12/10/18 12/11/18 06:59 06:59 06:59 Intake Total 2750 250 Balance 2750 250 Weight 198 lb 6.656 oz 165 lb 2.02 oz General appearance: PRESENT: no acute distress, well-developed, well-nourished Head exam: PRESENT: atraumatic, normocephalic Eye exam: PRESENT: conjunctiva pink, EOMI, PERRLA. ABSENT: scleral icterus Ear exam: PRESENT: normal external ear exam Mouth exam: PRESENT: moist, tongue midline Neck exam: ABSENT: carotid bruit, JVD, lymphadenopathy, thyromegaly Respiratory exam: PRESENT: clear to auscultation yaya. ABSENT: rales, rhonchi, wheezes Cardiovascular exam: PRESENT: irregular rhythm, RRR. ABSENT: rubs Pulses: PRESENT: normal dorsalis pedis pul Vascular exam: PRESENT: normal capillary refill GI/Abdominal exam: PRESENT: normal bowel sounds, soft. ABSENT: distended, guarding, mass, organolmegaly, rebound, tenderness Rectal exam: PRESENT: deferred Extremities exam: PRESENT: full ROM, +1 edema. ABSENT: calf tenderness, clubbing Neurological exam: PRESENT: alert, awake, oriented to person, oriented to place, oriented to time, oriented to situation, CN II-XII grossly intact. ABSENT: motor sensory deficit Results Laboratory Results: 12/10/18 06:09 12/10/18 06:09 12/10/18 12/10/18 06:09 06:09 WBC 8.7 RBC 4.02 L Hgb 12.8 L Hct 37.7 L MCV 94 MCH 31.8 MCHC 34.0 RDW 14.3 H Plt Count 129 L Seg Neutrophils % 86.7 H Lymphocytes % 5.3 L Monocytes % 6.4 Eosinophils % 0.8 Basophils % 0.8 Absolute Neutrophils 7.5 Absolute Lymphocytes 0.5 Absolute Monocytes 0.6 Absolute Eosinophils 0.1 Absolute Basophils 0.1 Sodium 134.8 L Potassium 3.7 Chloride 100 Carbon Dioxide 29 Anion Gap 6 BUN 16 Creatinine 0.76 Est GFR ( Amer) > 60 Est GFR (Non-Af Amer) > 60 Glucose 105 Calcium 8.0 L 12/09/18 12/09/18 12/09/18 03:11 03:11 03:11 Creatine Kinase 220 H Troponin I < 0.012 NT-Pro-B Natriuret Pep 2130 H 12/09/18 12/09/18 12/09/18 09:00 15:34 15:34 Creatine Kinase 171 H Troponin I 0.013 < 0.012 NT-Pro-B Natriuret Pep 12/09/18 12/09/18 21:48 21:48 Creatine Kinase 180 H Troponin I 0.018 NT-Pro-B Natriuret Pep Impressions: Chest X-Ray 12/09/18 02:43 IMPRESSION: Prominent interstitial opacities, similar to the prior, which may represent chronic changes or mild interstitial edema. copyright 2011 [employer]- All Rights Reserved Assessment and Plan - Diagnosis (1) Atrial fibrillation with RVR Is this a current diagnosis for this admission?: Yes Plan: 12/09: Now rate-controlled. Given lanoxin and 5 mg of IV cardizem in the ER. Will resume home lopressor. Resume Pradaxa. BP in the 130/80s. 12/10: Remain rate controlled. Continue Lopressor and Pradaxa. Blood pressures are stable. (2) Gram-positive bacteremia Is this a current diagnosis for this admission?: Yes Plan: Empirically started on IV vancomycin. 2D echo ordered to assess for vegetations in light of him having bioprosthetic aortic valve. Repeat blood cultures. (3) CHF (congestive heart failure) Qualifiers: Heart failure type: systolic Heart failure chronicity: acute on chronic Qualified Code(s): I50.23 - Acute on chronic systolic (congestive) heart failure Is this a current diagnosis for this admission?: Yes Plan: He received IV Lasix in the ER. Resumed home dose of Lasix. - Time Time Spent with patient: 25-34 minutes
--- NOTE | 2018-12-10 17:31 | XCELERA REPORT ---
[address] [address] Transthoracic Echocardiogram Report Name: BRANDT DEJESUS Age: 83 yrs Gender: Male : 1935 Patient Status: Inpatient Patient Location: [address] [place] [address] Study Date: 12/10/2018 02:23 PM Height: 70 in Weight: 198 lb BSA: 2.1 m2 Procedure: A two-dimensional transthoracic echocardiogram with color flow and Doppler was performed. Study Quality: Technically suboptimal. The study was technically difficult with many images being suboptimal in quality. Images were not obtained from all of the standard acoustic windows due to the limited scope of the study. Reason For Study: AVR / Gram +cocci Bacteremia / ENDOCARDITIS. History: AVR / Gram +cocci Bacteremia / ENDOCARDITIS. Ordering Physician: ISABEL BARBOUR Performed By: Mian Wang Interpretation Summary REcommend PHU d due to poor TTE imaging m to assess for vegettions/ endocarditis. The left ventricle is grossly normal size. There is normal left ventricular wall thickness. No True apical 2 chamber views obtained.Hence cannot comment on the apical anterior , the basal anterior, the basal inferior and apical inferior parra.The mid anterior , the mid inferior and the rest of the LV parra contract normally. .Normal LVEF is normal and is low normal at 55% in the limited views. Doppler measurements suggest normal left ventricular diastolic function Not a good study to assess valvular vegetations / endocrditis or for ASD,VSD .or PFO due to poor qaulity images. Right atrium not well visualized secondary to technical limitations The left atrium is mildly dilated. There is no evidence of mitral valve prolapse. There is no vegetation seen on the mitral valve. There is no mitral valve stenosis. There is a trace to mild amount of mitral regurgitation There is no aortic valvular vegetation. There is a bioprosthetic aortic valve. There is no .Trace AR. There is no tricuspid stenosis. There is a trace to mild amount of tricuspid regurgitation There is mild to moderate pulmonary hypertension by echo RVSP is 49 mm of Hg , with RA mean of 10. There is no pulmonic valvular stenosis. There is a mild to moderate amount of pulmonic regurgitation The inferior vena cava appeared normal and decreased > 50% with respiration (RAP 5-10 mmHg) There is no pericardial effusion. REcommend PHU d due to poor TTE imaging m to assess for vegettions/ endocarditis. MMode/2D Measurements & Calculations RVDd: 3.7 cm LVIDd: 4.5 cm FS: 30.4 % Ao root diam: 3.3 cm IVSd: 0.86 cm LVIDs: 3.1 cm EDV(Teich): 90.4 ml Ao root area: 8.6 cm2 LVPWd: 1.2 cm ESV(Teich): 38.0 ml LA dimension: 4.9 cm EF(Teich): 58.0 % LVOT diam: 2.0 cm LVOT area: 3.1 cm2 Doppler Measurements & Calculations MV E max jarek: MV P1/2t max jarek: Ao V2 max: LV V1 max P.9 cm/sec 143.5 cm/sec 80.8 cm/sec 1.2 mmHg MV A max jarek: MV P1/2t: 51.3 msec Ao max P.6 mmHgLV V1 max: 29.6 cm/sec MVA(P1/2t): 4.3 cm2 MORGAN(V,D): 2.1 cm2 55.3 cm/sec MV E/A: 4.3 MV dec slope: 818.9 cm/sec2 MV dec time: 0.17 sec MR max jarek: PA V2 max: PI end-d jarek: TR max jarek: 438.8 cm/sec 76.0 cm/sec 164.9 cm/sec 311.7 cm/sec MR max PG: PA max P.3 mmHg TR max P.1 mmHg 38.9 mmHg MV P1/2t-pr_phl: 51.3 msec Left Ventricle The left ventricle is grossly normal size. There is normal left ventricular wall thickness. No True apical 2 chamber views obtained.Hence cannot comment on the apical anterior , the basal anterior, the basal inferior and apical inferior parra.The mid anterior , the mid inferior and the rest of the LV parra contract normally. .Normal LVEF is normal and is low normal at 55% in the limited views. Doppler measurements suggest normal left ventricular diastolic function. Not a good study to assess valvular vegetations / endocrditis or for ASD,VSD .or PFO due to poor qaulity images. Right Ventricle The right ventricle is not well visualized secondary to technical limitations. Atria Right atrium not well visualized secondary to technical limitations. The left atrium is mildly dilated. Mitral Valve There is mild mitral leaflet calcification. There is no evidence of mitral valve prolapse. There is no vegetation seen on the mitral valve. There is no mitral valve stenosis. There is a trace to mild amount of mitral regurgitation. Aortic Valve There is no aortic valvular vegetation. There is a bioprosthetic aortic valve. There is no .Trace AR. Tricuspid Valve There is no tricuspid stenosis. There is a trace to mild amount of tricuspid regurgitation. There is mild to moderate pulmonary hypertension by echo. RVSP is 49 mm of Hg , with RA mean of 10. Pulmonic Valve There is no pulmonic valvular stenosis. There is a mild to moderate amount of pulmonic regurgitation. Great Vessels The aortic root is not well visualized but is probably normal size. The inferior vena cava appeared normal and decreased > 50% with respiration (RAP 5-10 mmHg). Effusions There is no pericardial effusion. : ISABEL BARBOUR > Chelly Benito
[2018-12-10] MEDS: SIMVASTATIN 40 MG TABLET PO SCH (21:17)
[2018-12-11] MEDS: VANCOMYCIN HCL 1,000 MG in DEXTROSE 5%-WATER 250 ML IV SCH (06:02)
[2018-12-11 06:47] LABS: VANCOMYCIN,TROUGH 10.7 ug/mL (5.0-20.0)
[2018-12-11] MEDS: METOPROLOL TARTRATE 25 MG TABLET PO SCH ×2 (09:29→21:14)
[2018-12-11] MEDS: POTASSIUM CHLORIDE 10 MEQ CAPSULE.ER PO SCH (09:29)
[2018-12-11] MEDS: TIOTROPIUM BROMIDE DPI 5 CAP/KIT (18 MCG/CAP) IH SCH (09:30)
[2018-12-11] MEDS: DABIGATRAN ETEXILATE 150 MG CAPSULE PO SCH ×2 (09:30→21:14)
[2018-12-11] MEDS: OMEGA-3 ACID ETHYL ESTERS 1 GM CAPSULE PO SCH ×2 (09:30→18:51)
[2018-12-11] MEDS: FLUTICASONE/VILANTEROL 200-25 MCG/DOSE IH SCH (09:30)
[2018-12-11] MEDS: FERROUS SULFATE 325 MG TABLET PO SCH ×2 (09:30→18:51)
[2018-12-11] MEDS: FUROSEMIDE 40 MG TABLET PO SCH (09:30)
[2018-12-11] MEDS: EZETIMIBE 10 MG TABLET PO SCH ×2 (09:31→21:15)
--- NOTE | 2018-12-11 15:07 | PDOC PROGRESS REPORT ---
Subjective Progress Note for:: 12/11/18 Subjective:: This is an 83 yr old male with a PMH of paroxysmal atrial fibrillation on Pradaxa, coronary artery disease, congestive heart failure, and bioprosthetic aortic valve who presented with a syncopal episode (6 days ago) and recent palpitations and increasing pedal edema. He was found to be in Afib w/ RVR on presentation with hypotension in the 80 systolic. He was given digoxin and 5 mg of IV cardizem in the ER. Cardizem drip was ordered but not started as patient's heart rate improved down to the 70-80s. Upon encounter, he looks comfortable. He is currently in atrial flutter with a heart rate in the high 70s. Blood pressures have improved to 130/80s. He denies any chest pain or shortness of breath in the morning. He says that his pedal edema is better this morning. He says he follows up with the photo mask inspector and [place]. Will request records from his photo mask inspector. 12/10: He denies chest pain or shortness of breath. He is currently rate controlled in the 70s. Blood pressures are stable. His blood cultures however are initially growing gram-positive cocci 2/2 bottles. No significant signs of bacteremia identified. But with his bioprosthetic aortic valve, will order 2D echo to assess for vegetations. He was also started on IV antibiotics e mpirically. 12/11: No acute event overnight. He denies chest pain or shortness of breath. Blood cultures came back positive for Enterococcus faecalis 2/2 bottles. No fever on this hospital course but patient did say that he was having chills and fever a few days prior to admission. He has a faint systolic murmur. Discussed with patient's PCP, Dr. Coleman who said that he does have a normal murmur from his aortic valve. TTE was suboptimal. Will pursue a PHU to rule out vegetations. Discussed with [facility] cardiology who the patient follows. He will be scheduled for a PHU tomorrow morning. Reason For Visit: AFIB HYPOTENSION Physical Exam Vital Signs: Temp Pulse Resp BP Pulse Ox 99.5 F 75 19 105/72 95 12/11/18 12:32 12/11/18 12:32 12/11/18 12:32 12/11/18 12:32 12/11/18 12:32 Intake & Output 12/10/18 12/11/18 12/12/18 06:59 06:59 06:59 Intake Total 2750 880 250 Output Total 800 Balance 2750 80 250 Weight 165 lb 2.02 oz 205 lb 0.478 oz General appearance: PRESENT: no acute distress, well-developed, well-nourished Head exam: PRESENT: atraumatic, normocephalic Eye exam: PRESENT: conjunctiva pink, EOMI, PERRLA. ABSENT: scleral icterus Ear exam: PRESENT: normal external ear exam Mouth exam: PRESENT: moist, tongue midline Neck exam: ABSENT: carotid bruit, JVD, lymphadenopathy, thyromegaly Respiratory exam: PRESENT: clear to auscultation yaya. ABSENT: rales, rhonchi, wheezes Cardiovascular exam: PRESENT: irregular rhythm, systolic murmur. ABSENT: diastolic murmur, rubs Pulses: PRESENT: normal dorsalis pedis pul GI/Abdominal exam: PRESENT: normal bowel sounds, soft. ABSENT: distended, guarding, mass, organolmegaly, rebound, tenderness Rectal exam: PRESENT: deferred Extremities exam: PRESENT: full ROM, +1 edema. ABSENT: calf tenderness, clubbing Neurological exam: PRESENT: alert, awake, oriented to person, oriented to place, oriented to time, oriented to situation, CN II-XII grossly intact. ABSENT: motor sensory deficit Results Laboratory Results: 12/10/18 06:09 12/11/18 05:50 12/11/18 05:50 Creatinine 0.83 Est GFR ( Amer) > 60 Est GFR (Non-Af Amer) > 60 12/09/18 06:10 Blood Blood Culture - Final Enterococcus Faecalis(Group D) 12/09/18 03:11 Blood Blood Culture - Final Enterococcus Faecalis(Group D) 12/09/18 12/09/18 12/09/18 03:11 03:11 03:11 Creatine Kinase 220 H Troponin I < 0.012 NT-Pro-B Natriuret Pep 2130 H 12/09/18 12/09/18 12/09/18 09:00 15:34 15:34 Creatine Kinase 171 H Troponin I 0.013 < 0.012 NT-Pro-B Natriuret Pep 12/09/18 12/09/18 21:48 21:48 Creatine Kinase 180 H Troponin I 0.018 NT-Pro-B Natriuret Pep Impressions: Chest X-Ray 12/09/18 02:43 IMPRESSION: Prominent interstitial opacities, similar to the prior, which may represent chronic changes or mild interstitial edema. copyright 2010 [employer]- All Rights Reserved Assessment and Plan - Diagnosis (1) Atrial fibrillation with RVR Is this a current diagnosis for this admission?: Yes Plan: 12/09: Now rate-controlled. Given lanoxin and 5 mg of IV cardizem in the ER. Will resume home lopressor. Resume Pradaxa. BP in the 130/80s. 12/11: Remain rate controlled. Continue Lopressor and Pradaxa. Blood pressures are stable. (2) Gram-positive bacteremia Is this a current diagnosis for this admission?: Yes Plan: Empirically started on IV vancomycin. 2D echo ordered to assess for vegetations in light of him having bioprosthetic aortic valve. Repeat blood cultures. 12/11: Blood cultures came back positive for Enterococcus faecalis 2/2 bottles. Will pursue a PHU to rule out infective endocarditis. Will consult ID for further recommendations as well. Continue IV antibiotics. (3) CHF (congestive heart failure) Qualifiers: Heart failure type: systolic Heart failure chronicity: acute on chronic Qualified Code(s): I50.23 - Acute on chronic systolic (congestive) heart failure Is this a current diagnosis for this admission?: Yes Plan: He received IV Lasix in the ER. Resumed home dose of Lasix. - Time Time Spent with patient: 25-34 minutes
--- NOTE | 2018-12-11 16:47 | Progress Note ---
Provider Note Provider Note: ID Consult Note Asked to review patient's chart. Pt not seen or examined. Pt is a 83 year old man with PMH including PAF, CAD, CHF, and bioprosthetic aortic valve who presented on 12/09/18 with increasing pedal edema, palpitations and a syncope upon standing a week before admission. He did not have any GI or complaints. He was found to be hypotensive and tachycardic - in AF with RVR. His exam was notable for irregular cardiac rhythm, systolic murmur, and pedal edema. He had blood cultures drawn on admission that grew Enterococcus faecalis in one bottle of both sets drawn from two different sites at two different times. Vancomycin has been given empirically. Repeat blood cultures have been ordered. A screening TTE was performed, which was not able to visualize valves well. Pt is planned to be transferred to [facility] to have PHU performed. Impression/Recommendations Enterococcal bacteremia in the setting of bioprosthetic AoV, r/o endocarditis - Differentiating transient enterococcal bacteremia from enterococcal endocarditis can be challenging, but some factors that have been associated with increased risk for IE include continuous/sustained bacteremia, occult source, and preexisting valvulopathy or prosthetic valve or cardiac device. - Agree with pursuing PHU given presence of prosthetic valve. - Based on susceptibilities, switch from vancomycin to ampicillin 2 grams q4h IV would be appropriate. - F/u repeat BCx results Jason Luciano MD [facility] Infectious Diseases pager [phone]
[2018-12-11] MEDS ORDERED: EZETIMIBE 10 MG TABLET PO SCH (18:00)
[2018-12-11] MEDS ORDERED: VANCOMYCIN HCL 1,500 MG in DEXTROSE 5%-WATER 250 ML IV SCH (18:00)
[2018-12-11] MEDS: SIMVASTATIN 40 MG TABLET PO SCH (21:14)
[2018-12-11] MEDS: AMPICILLIN SODIUM 2 GM in NORMAL SALINE 100 ML IV SCH (21:14)
[2018-12-12] MEDS: AMPICILLIN SODIUM 2 GM in NORMAL SALINE 100 ML IV SCH ×4 (02:06→13:27)
[2018-12-12] MEDS: METOPROLOL TARTRATE 25 MG TABLET PO SCH ×2 (13:17→21:41)
[2018-12-12] MEDS: OMEGA-3 ACID ETHYL ESTERS 1 GM CAPSULE PO SCH ×2 (13:17→18:03)
[2018-12-12] MEDS: POTASSIUM CHLORIDE 10 MEQ CAPSULE.ER PO SCH (13:17)
[2018-12-12] MEDS: FERROUS SULFATE 325 MG TABLET PO SCH ×2 (13:17→18:04)
[2018-12-12] MEDS: FLUTICASONE/VILANTEROL 200-25 MCG/DOSE IH SCH (13:18)
[2018-12-12] MEDS: TIOTROPIUM BROMIDE DPI 5 CAP/KIT (18 MCG/CAP) IH SCH (13:19)
[2018-12-12] MEDS: DABIGATRAN ETEXILATE 150 MG CAPSULE PO SCH ×2 (13:19→21:44)
[2018-12-12] MEDS: FUROSEMIDE 40 MG TABLET PO SCH (13:22)
[2018-12-12] MEDS: BENZOCAINE/MENTHOL SORE THROAT LOZENGE BUCCAL PRN ×2 (14:40→18:03)
--- NOTE | 2018-12-12 15:34 | PDOC PROGRESS REPORT ---
Subjective Progress Note for:: 12/12/18 Subjective:: Patient had echocardiogram performed today. His throat is a little sore post the procedure. Procedure did not definitively show any vegetations. He has not had fever chills in the last 12 to [address] at home. Lives alone. We compromised on a discharge tomorrow morning after his blood cultures come back with a 48-hour report. We will switch him over to oral antibiotics today. He reports improvements. Reason For Visit: AFIB HYPOTENSION Physical Exam Vital Signs: Temp Pulse Resp BP Pulse Ox 97.6 F 75 16 133/80 H 93 12/12/18 06:42 12/12/18 06:42 12/12/18 06:42 12/12/18 06:42 12/12/18 06:42 Intake & Output 12/11/18 12/12/18 12/13/18 06:59 06:59 06:59 Intake Total 880 1730 Output Total 800 Balance 80 1730 Weight 93 kg 92.9 kg General appearance: PRESENT: no acute distress, well-developed, well-nourished Head exam: PRESENT: atraumatic, normocephalic Eye exam: PRESENT: conjunctiva pink, EOMI, PERRLA. ABSENT: scleral icterus Ear exam: PRESENT: normal external ear exam Mouth exam: PRESENT: moist, tongue midline Neck exam: ABSENT: carotid bruit, JVD, lymphadenopathy, thyromegaly Respiratory exam: PRESENT: decreased breath sounds. ABSENT: rales, rhonchi, wheezes Cardiovascular exam: PRESENT: RRR. ABSENT: diastolic murmur, rubs, systolic murmur GI/Abdominal exam: PRESENT: normal bowel sounds, soft. ABSENT: distended, guarding, mass, organolmegaly, rebound, tenderness Rectal exam: PRESENT: deferred Extremities exam: PRESENT: +1 edema - Bilateral lower extremities, other Musculoskeletal exam: PRESENT: normal inspection Neurological exam: PRESENT: alert, awake, oriented to person, oriented to place, oriented to time, oriented to situation, CN II-XII grossly intact. ABSENT: motor sensory deficit Psychiatric exam: PRESENT: normal mood Focused psych exam: ABSENT: catatonic, delusional, euphoric, flight of ideas, in ternal stimuli, paranoid, pressured speech, psychomotor agitation, restlessness, other Skin exam: PRESENT: intact Results Laboratory Results: 12/10/18 06:09 12/11/18 05:50 12/09/18 12/09/18 12/09/18 03:11 03:11 03:11 Creatine Kinase 220 H Troponin I < 0.012 NT-Pro-B Natriuret Pep 2130 H 12/09/18 12/09/18 12/09/18 09:00 15:34 15:34 Creatine Kinase 171 H Troponin I 0.013 < 0.012 NT-Pro-B Natriuret Pep 12/09/18 12/09/18 21:48 21:48 Creatine Kinase 180 H Troponin I 0.018 NT-Pro-B Natriuret Pep Impressions: Chest X-Ray 12/09/18 02:43 IMPRESSION: Prominent interstitial opacities, similar to the prior, which may represent chronic changes or mild interstitial edema. copyright 2010 [employer]- All Rights Reserved Assessment and Plan - Diagnosis (1) Atrial fibrillation with RVR Is this a current diagnosis for this admission?: Yes Plan: Stable at this time. Echo results from today pending. Currently in normal sinus rhythm. (2) CHF (congestive heart failure) Qualifiers: Heart failure type: systolic Heart failure chronicity: acute on chronic Qualified Code(s): I50.23 - Acute on chronic systolic (congestive) heart failure Is this a current diagnosis for this admission?: Yes Plan: Stable at this time. Lower extremity edema likely from congestive heart failure. Today's echocardiogram results pending (3) Gram-positive bacteremia Is this a current diagnosis for this admission?: Yes Plan: Infectious diseases: impression/Recommendations Enterococcal bacteremia in the setting of bioprosthetic AoV, r/o endocarditis - Differentiating transient enterococcal bacteremia from enterococcal endocarditis can be challenging, but some factors that have been associated with increased risk for IE include continuous/sustained bacteremia, occult source, and preexisting valvulopathy or prosthetic valve or cardiac device. - Agree with pursuing PHU given presence of prosthetic valve. - Based on susceptibilities, switch from vancomycin to ampicillin 2 grams q4h IV would be appropriate. - F/u repeat BCx results. -> Blood cultures negative at 24 hours. Change to oral ampicillin. - Time Time Spent with patient: 25-34 minutes Medications reviewed and adjusted accordingly: Yes Anticipated discharge: Home Within: within 48 hours - Inpatient Certification Based on my medical assessment, after consideration of the patient's comorbiditi es, presenting symptoms, or acuity I expect that the services needed warrant INPATIENT care.: Yes I certify that my determination is in accordance with my understanding of [facility]'s requirements for reasonable and necessary INPATIENT services [42 CFR 412.3e].: Yes - Plan Summary Plan Summary: Patient is a candidate for discharge in the morning.
[2018-12-12] MEDS: AMPICILLIN TRIHYD 500 MG CAPSULE PO SCH (18:03)
[2018-12-12] MEDS: EZETIMIBE 10 MG TABLET PO SCH (21:44)
[2018-12-12] MEDS: SIMVASTATIN 40 MG TABLET PO SCH (21:44)
[2018-12-13] MEDS: AMPICILLIN TRIHYD 500 MG CAPSULE PO SCH ×3 (00:17→12:11)
[2018-12-13] MEDS: TIOTROPIUM BROMIDE DPI 5 CAP/KIT (18 MCG/CAP) IH SCH (10:00)
[2018-12-13] MEDS: FLUTICASONE/VILANTEROL 200-25 MCG/DOSE IH SCH (10:36)
[2018-12-13] MEDS: FUROSEMIDE 40 MG TABLET PO SCH (10:38)
[2018-12-13] MEDS: METOPROLOL TARTRATE 25 MG TABLET PO SCH (10:39)
[2018-12-13] MEDS: FERROUS SULFATE 325 MG TABLET PO SCH (10:39)
[2018-12-13] MEDS: DABIGATRAN ETEXILATE 150 MG CAPSULE PO SCH (10:39)
[2018-12-13] MEDS: POTASSIUM CHLORIDE 10 MEQ CAPSULE.ER PO SCH (10:39)
[2018-12-13] MEDS: OMEGA-3 ACID ETHYL ESTERS 1 GM CAPSULE PO SCH (10:39)
[2018-12-13 12:08] VITALS: BP 126/66
--- NOTE | 2018-12-13 15:32 | PDOC DISCHARGE SUMMARY ---
General - Admit/Disc Date/PCP Admission Date/Primary Care Provider: 12/09/18 05:24 JUDI ZULUAGA MD Discharge Date: 12/13/18 - Discharge Diagnosis (1) Atrial fibrillation with RVR Is this a current diagnosis for this admission?: Yes Summary: resolved early in admission w/lanoxin and iv cardizem. maintained on pradaxa and home lopressor. stable. nsr. continue (2) CHF (congestive heart failure) Is this a current diagnosis for this admission?: Yes Summary: stable. echo EF 55-60. she had a PHU performed at [facility] to check for possible valvular lesions. none were identified. patient should be on AIXA/ARB. he would like to discuss with pcp. (3) Gram-positive bacteremia Is this a current diagnosis for this admission?: Yes (4) Fever Is this a current diagnosis for this admission?: Yes Summary: resolved. unknown source of bacteremia. since patient is at increased risk of IE he was started on abx for + blood (1/2) enteroccocus. this case was discussed with ID , and patient will go home on amox 1g tid and have blood cultures qweek x 4. [place]. he describes sudden dizziness and one episode of fever and feeling bad prodrome, which is not c/w no rmal IE onset. He reports normal health up unitl december 07. UA did not suggest infxn on arrival. he had been on abx for an extended period of time, urine culture was not obtained. the blood culture may be contaminate, but given his health and condition - Additional Information Resuscitation Status: Full Code Discharge Diet: Cardiac Discharge Activity: Activity As Tolerated, Balance Activity w/Rest, Weigh Daily Home Medications: Albuterol Sulfate [Proventil Hfa] 2 puff IH Q6HP PRN 12/09/18 Budesonide/Formoterol Fumarate [Symbicort HFA 160-4.5 mcg Inhaler 6 gm] 1 puff IH Q12 12/09/18 Dabigatran Etexilate Mesylate [Pradaxa 150 mg Capsule] 150 mg PO Q12 12/09/18 Ezetimibe [Zetia 10 mg Tablet] 10 mg PO DAILY 12/09/18 Ferrous Sulfate [Feosol 325 mg Tablet] 325 mg PO BID 12/09/18 Furosemide [Lasix 40 mg Tablet] 60 mg PO QAM 12/09/18 Metoprolol Tartrate [Lopressor 25 mg Tablet] 25 mg PO Q12 12/09/18 Multivitamin [Tab-A-Annie (Multiple Vitamin) Tablet] 1 tab PO DAILY 12/09/18 [place]-3/Dha/Epa/Fish Oil [Fish Oil 500 mg Softgel] 1 cap PO BID 12/09/18 Potassium Chloride [Klor-Con M10] 10 meq PO DAILY 12/09/18 Simvastatin [Zocor 40 mg Tablet] 40 mg PO QPM 12/09/18 Tiotropium Maramec [Spiriva Handihaler 5 Cap/Kit (18 Mcg/Cap)] 1 puff IH DAILY 12/09/18 History of Present Illness History of Present Illness: BRANDT DEJESUS is a 83 year old male with a past medical history of paroxysmal atrial fibrillation on Eliquis, coronary artery disease, congestive heart failure, bioprosthetic aortic valve. Patient presents with a syncopal episode 6 days ago with subsequent palpitations and lower extremity edema. He denies chest pain nausea vomiting shortness of breath or diaphoresis. In the emergency room is found to be in A. fib with RVR and hypotensive blood pressure in the 80s. He receives an order for IV Cardizem and referred to the hospitalist for admission. He denies recent change of medications and otherwise compliant with medication regiment. Hospital Course Hospital Course: see above Physical Exam Vital Signs: Temp Pulse Resp BP Pulse Ox 98.0 F 69 20 126/66 H 97 12/13/18 14:58 12/13/18 14:58 12/13/18 14:58 12/13/18 14:58 12/13/18 14:58 Intake & Output 12/12/18 12/13/18 12/14/18 06:59 06:59 06:59 Intake Total 1730 1278 320 Output Total 875 Balance 1730 403 320 Weight 92.9 kg 92.3 kg General appearance: PRESENT: no acute distress, well-developed, well-nourished Head exam: PRESENT: atraumatic, normocephalic Eye exam: PRESENT: conjunctiva pink, EOMI, PERRLA. ABSENT: scleral icterus Ear exam: PRESENT: normal external ear exam Mouth exam: PRESENT: moist, tongue midline Neck exam: ABSENT: carotid bruit, JVD, lymphadenopathy, thyromegaly Respiratory exam: PRESENT: clear to auscultation yaya. ABSENT: rales, rhonchi, wheezes Cardiovascular exam: PRESENT: RRR, systolic murmur - possible murmur. ABSENT: diastolic murmur, rubs Pulses: PRESENT: normal dorsalis pedis pul Vascular exam: PRESENT: normal capillary refill GI/Abdominal exam: PRESENT: normal bowel sounds, soft. ABSENT: distended, guarding, mass, organolmegaly, rebound, tenderness Rectal exam: PRESENT: deferred Extremities exam: PRESENT: full ROM. ABSENT: calf tenderness, clubbing, pedal edema Neurological exam: PRESENT: alert, awake, oriented to person, oriented to place, oriented to time, oriented to situation, CN II-XII grossly intact. ABSENT: motor sensory deficit Psychiatric exam: PRESENT: appropriate affect, normal mood. ABSENT: homicidal ideation, suicidal ideation Skin exam: PRESENT: dry, intact, warm. ABSENT: cyanosis, rash Results Laboratory Results: 12/10/18 06:09 12/11/18 05:50 12/09/18 12/09/18 12/09/18 03:11 03:11 03:11 Creatine Kinase 220 H Troponin I < 0.012 NT-Pro-B Natriuret Pep 2130 H 12/09/18 12/09/18 12/09/18 09:00 15:34 15:34 Creatine Kinase 171 H Troponin I 0.013 < 0.012 NT-Pro-B Natriuret Pep 12/09/18 12/09/18 21:48 21:48 Creatine Kinase 180 H Troponin I 0.018 NT-Pro-B Natriuret Pep Impressions: Chest X-Ray 12/09/18 02:43 IMPRESSION: Prominent interstitial opacities, similar to the prior, which may represent chronic changes or mild interstitial edema. copyright 2010 [employer]- All Rights Reserved Qualifiers - * PATIENT BEING DISCHARGED WITH ANY OF THE FOLLOWING DIAGNOSIS: No Acute Heart Failure - Is this a Heart Failure Patient?: No Plan Discharge Plan: see above Time Spent: Greater than 30 Minutes
== END 2018-12-13 15:44 | disposition home or self-care (01) | DRG 308 ==
LOC: ER 01:44 → OBSVTOIN 05:24 → EH 05:24 → 3S 14:07
PROVIDERS: ADMIT Internal Medicine; ATTEND Internal Medicine
DX: I48.0 Paroxysmal atrial fibrillation (principal); I50.23 Acute on chronic systolic (congestive) heart failure; I25.10 Atherosclerotic heart disease of native coronary artery without angina pectoris; E78.5 Hyperlipidemia, unspecified; I11.0 Hypertensive heart disease with heart failure; B95.2 Enterococcus as the cause of diseases classified elsewhere; E78.00 Pure hypercholesterolemia, unspecified; Z96.653 Presence of artificial knee joint, bilateral; Z60.2 Problems related to living alone; Z79.899 Other long term (current) drug therapy; Z79.01 Long term (current) use of anticoagulants; Z95.2 Presence of prosthetic heart valve
CPT/HCPCS: 36415; 71045; 80048; 80053; 80202; 81001; 82550; 82565; 83735; 83880; 84443; 84484; 85025; 87040; 87077; 87186; 93005; 93010; 93306; 99284; J0290; J1160; J1940; J3370; J3490; J7030; J7050; J7060

== ENCOUNTER 2019-06-07 15:06 | Emergency (ER) | payer MEDICARE, OTHER ==
--- NOTE | 2019-06-07 16:31 | RADIOLOGY REPORT (SQ) ---
EXAM DESCRIPTION: CT CERVICAL SPINE WITHOUT COMPLETED DATE/TIME: 06/07/2019 4:21 pm REASON FOR STUDY: bed t 2 s/p fall per dr keyes COMPARISON: None. TECHNIQUE: Axial images acquired through the cervical spine without intravenous contrast. Images re viewed with lung, soft tissue and bone windows. Reconstructed coronal and sagittal MPR images review ed. Images stored on PACS. All CT scanners at this facility use dose modulation, iterative reconstruction, and/or weight based d osing when appropriate to reduce radiation dose to as low as reasonably achievable (ALARA). [facility]: Dose Right [facility]: CareDose [facility]: Dose Right [facility]: Teradose 4D [facility]: [employer] RADIATION DOSE: CT Rad equipment meets quality standard of care and radiation dose reduction techniq ues were employed. CTDIvol: 23.8 - 53.2 mGy. DLP: 1487 mGy-cm. mGy. LIMITATIONS: Motion. FINDINGS: ALIGNMENT: Osteopenia. MINERALIZATION: Normal. VERTEBRAL BODIES: No fractures or dislocation. DISCS: Multilevel disc space narrowing with osteophytes. FACETS, LATERAL MASSES, POSTERIOR ELEMENTS: Facet arthropathy. No fractures. No dislocation. No ac rajesh findings. HARDWARE: None in the spine. VISUALIZED RIBS: No fractures. LUNG APICES AND SOFT TISSUES: Moderate right pleural effusion. OTHER: No other significant finding. IMPRESSION: Motion artifact. No fracture identified. TECHNICAL DOCUMENTATION: JOB ID: [id number] Quality ID # [id number]: Final reports with documentation of one or more dose reduction techniques (e.g., Au tomated exposure control, adjustment of the mA and/or kV according to patient size, use of iterative reconstruction technique) 2010 [email or web address]- All Rights Reserved Reading location - IP/workstation name: [email or web address]
--- NOTE | 2019-06-07 16:35 | RADIOLOGY REPORT (SQ) ---
EXAM DESCRIPTION: CT HEAD WITHOUT COMPLETED DATE/TIME: 06/07/2019 4:21 pm REASON FOR STUDY: bed t 2 s/p fall per dr keyes COMPARISON: None. TECHNIQUE: Axial images acquired through the brain without intravenous contrast. Images reviewed wit h bone, brain and subdural windows. Images stored on PACS. All CT scanners at this facility use dose modulation, iterative reconstruction, and/or weight based d osing when appropriate to reduce radiation dose to as low as reasonably achievable (ALARA). [facility]: Dose Right [facility]: CareDose [facility]: Dose Right [facility]: Teradose 4D [facility]: [employer] RADIATION DOSE: . LIMITATIONS: None. FINDINGS: VENTRICLES: Normal size and contour. CEREBRUM: No masses. No hemorrhage. No midline shift. Age appropriate white matter. No evidence for a cute infarction. CEREBELLUM: No masses. No hemorrhage. No alteration of density. No evidence for acute infarction. EXTRA-AXIAL SPACES: No fluid collections. ORBITS AND GLOBE: No intra- or extraconal masses. Normal contour of globe without masses. CALVARIUM: No fracture. PARANASAL SINUSES: No fluid levels. Mild left maxillary mucosal thickening. SOFT TISSUES: Mild left frontal swelling. OTHER: No other significant finding. IMPRESSION: NO ACUTE INTRACRANIAL FINDINGS. EVIDENCE OF ACUTE STROKE: NO. TECHNICAL DOCUMENTATION: JOB ID: [id number] [place]-72 Quality ID # [id number]: Final reports with documentation of one or more dose reduction techniques (e.g., Au tomated exposure control, adjustment of the mA and/or kV according to patient size, use of iterative reconstruction technique) 2010 [employer]- All Rights Reserved Reading location - IP/workstation name: [email or web address]
--- NOTE | 2019-06-07 16:41 | RADIOLOGY REPORT (SQ) ---
EXAM DESCRIPTION: FINGER RIGHT COMPLETED DATE/TIME: 06/07/2019 4:25 pm REASON FOR STUDY: bed t2 riht index finger deformity per dr keyes COMPARISON: None. EXAM PARAMETERS: NUMBER OF VIEWS: Four views. TECHNIQUE: AP, lateral and oblique radiographic images acquired of the right hand. LIMITATIONS: None. FINDINGS: MINERALIZATION: Osteopenia. BONES: Dorsal dislocation of the 2nd PIP. Probable 2-3 mm avulsion on the ulnar aspect of the middle phalanx articular surface. SOFT TISSUES: Moderate soft tissue swelling. No radiopaque foreign body. OTHER: No other significant finding. IMPRESSION: Dorsal dislocation of the 2nd PIP. Probable 2-3 mm avulsion on the ulnar aspect of the 2nd middle phalanx at the articular surface. TECHNICAL DOCUMENTATION: JOB ID: [id number] [place]-72 2010 [employer]- All Rights Reserved Reading location - IP/workstation name: [email or web address]
[2019-06-07] MEDS ORDERED: LIDOCAINE 1% INJ-PF (10 MG/ML) 30 ML SDV ONE (17:14)
--- NOTE | 2019-06-07 17:30 | ER Document Report ---
ED General - General Chief Complaint: Near Syncope Stated Complaint: POSSIBLE SYNCOPE Time Seen by Provider: 06/07/19 17:01 Primary Care Provider: JUDI ZULUAGA MD [Primary Care Provider] - Follow up as needed TRAVEL OUTSIDE OF THE [place] IN LAST 30 DAYS: No - Related Data Allergies/Adverse Reactions: No Known Allergies Allergy (Verified 06/07/19 15:24) Home Medications: tosemide, metoprolol. pradaxa, spiriva, symbicort, zocor, albuterol Past Medical History - Social History Smoking Status: Former Smoker Chew tobacco use (# tins/day): No Frequency of alcohol use: dailly 5 10oz beer Drug Abuse: None Family History: Reviewed & Not Pertinent Patient has suicidal ideation: No Patient has homicidal ideation: No - Past Medical History Cardiac Medical History: Reports: Hx Atrial Fibrillation, Hx Hypercholesterolemia, Hx Hypertension - adalat toprol Denies: Hx Heart Attack Pulmonary Medical History: Denies: Hx Asthma Neurological Medical History: Denies: Hx Cerebrovascular Accident, Hx Seizures Renal/ Medical History: Denies: Hx Peritoneal Dialysis GI Medical History: Denies: Hx Hepatitis, Hx Hiatal Hernia, Hx Ulcer Musculoskeletal Medical History: Infectious Medical History: Denies: Hx Hepatitis Past Surgical History: Reports: Hx Cardiac Surgery - Open Heart; Aorta and Valve involvment, Hx Orthopedic Surgery - Bilat knee replacements, Left rotoator cuff, right shoulder hardware, Hx Valve Replacement - Aortic valve. Denies: Hx Open Heart Surgery, Hx Pacemaker - Immunizations Hx Diphtheria, Pertussis, Tetanus Vaccination: Yes Physical Exam - Vital signs Vitals: Temp Pulse Resp BP Pulse Ox 98.0 F 85 18 132/83 H 100 06/07/19 15:18 06/07/19 15:18 06/07/19 15:18 06/07/19 15:18 06/07/19 15:18 - Notes Notes: Patient was brought in by paramedics with a near syncopal episode. Says that he had walked into the bathroom at the restaurant to feel lightheaded so he went into the stall to sit down. He said he was reaching across to grab the handle to support himself and fell onto the ground hitting his head. He denies any preceding chest pain dizziness headache or palpitations. Remembers hitting the ground was not knocked out. Because of his chronic hip pain and was helped up by bystanders. Paramedics were called he was transported here. Presents now for evaluation denies headaches abnormal vision neck pain chest pain shortness of breath nausea vomiting or abdominal pain and no palpitations. Appetite is been good there is been no vomiting or diarrhea. Medical history significant for paroxysmal atrial fibrillation which is asymptomatic patient cannot tell when he has the A. fib. CHF aortic valve replacement. No hypertension or diabetes. Has a history of occasional falls with near syncope going on for 5 years. Etiology is unclear usually has a prodrome with some tingling in his shoulders which he thinks he had earlier today Social history he does not smoke but does drink alcohol. Tetanus is up-to-date per patient. Medication is on Pradaxa Review of systems pertinent positives and negatives in HPI otherwise all the s ystems were reviewed and acutely negative PHYSICIAN EXAM -vital signs are noted triage note and note from triage reviewed GENERAL: Well-appearing, well-nourished and in __no acute distress____ HEAD: Atraumatic, normocephalic. There is an abrasion in the forehead in the midline. The orbits are nontender with no entrapment. The nose is nontender with no swelling there is a 5 mm superficial laceration to bridge of the nose with bleeding controlled. The face is nontender TMs are clear no hemotympanum EYES: Pupils equal round and reactive to light, extraocular movements intact, sclera anicteric, conjunctiva are normal. No conjunctival hemorrhage or hyphema ENT: nares patent, there is no blood or septal hematoma oropharynx clear without exudates. No lesions in the mouth moist mucous membranes. NECK: supple without lymphadenopathy nontender in the midline with full range of motion LUNGS: Breath sounds clear to auscultation bilaterally and equal. No wheezes rales or rhonchi. Chest is nontender HEART: Regular rate and rhythm without murmurs ABDOMEN: Soft, nontender, normoactive bowel sounds. EXTREMITIES: Lower extremities he knee and ankle nontender. Is got positive edema bilaterally to the knees which is chronic upper extremity shoulder elbow wrist are nontender he has good no pain with flexion extension of the wrist. Is got old abrasion over the dorsal aspect of the wrist previous fall with no evidence of secondary infection no malrotation of the fingers. Right upper extremity shoulder elbow and wrist are nontender he has no pain flexion- extension of the wrist. Does have a large flap-like avulsion of the dorsal aspect of the wrist but no tenderness. Does have an obvious dislocation of the PIP joint of the second finger on his right some slight tenting of the skin but there is good capillary refill the tenting of skin return to normal after reduction NEUROLOGICAL: No focal neurological deficits. Moves all extremities spontaneously and on command. PSYCH: Normal mood, normal affect. SKIN: Warm, Dry, normal turgor, no rashes or lesions noted. BACK-nontender in the midline Course - Re-evaluation Re-evalutation: 06/07/19 20:07 ED patient is remained stable neurologically intact focal neurological exam 06/07/19 20:08 Medical decision making patient presents with status post fall mild head injury. He looks well is been observed here for several hours was negative and can be discharged home he does have family members that they can watch him He reports that he has had this right-sided pleural effusion in the past. No pulmonary complaints his O2 sats are good he will be given a copy of the x-ray and advised to follow-up with his family doctor for reevaluation patient At this time there is no indication for admission. I have discussed the findings with patient/family with return precautions and follow-up recommendations. Verbal discharge instructions given at the bedside and opportunity for questions given. Medication warnings were given if indicated. Patient is in agreement with this plan and has verbalized understanding of return precautions and the need for primary care follow-up as directed.. 06/07/19 20:13 06/07/19 20:22 Procedure laceration of his nose was cleansed with normal saline. Hemostasis was applied. Skin glue was applied with good hemostasis and skin approximation Procedure right hand was cleansed with normal saline. Hemostasis was obtained. Steri-Strips applied Procedure digital block of the right hand using lidocaine. The dislocation of the PIP joint was reduced using standard procedure. X-ray still shows a mild subluxation. Patient was repeated patient tolerated procedure well repeat x-ray shows the finger has been reduced with a small avulsion fracture there is good capillary refill afterwards and he had good range of motion of the joint Finger splint was applied by nursing staff was applied 06/07/19 20:24 - Vital Signs Vital signs: Temp Pulse Resp BP Pulse Ox 98.0 F 85 15 120/71 98 06/07/19 15:18 06/07/19 15:18 06/07/19 17:01 06/07/19 17:01 06/07/19 17:01 - Laboratory Result Diagrams: 06/07/19 17:37 06/07/19 17:37 Laboratory results interpreted by me: 06/07/19 06/07/19 17:37 17:37 RBC 4.00 L Hgb 12.4 L Hct 36.9 L RDW 14.8 H Lymph % (Auto) 11.2 L BUN 25 H - Diagnostic Test Radiology reviewed: Reports reviewed Radiology results interpreted by me: 06/07/19 20:07 Patient does report that she had a chronic right-sided pleural effusion. Was in the hospital 2 months ago for this aSymptomatic from this 06/07/19 20:13 - EKG Interpretation by Me Additional EKG results interpreted by me: 06/07/19 20:13 EKG shows atrial fibrillation with a controlled ventricular rate is a minimal nonspecific ST wave changes unchanged from previous Discharge - Discharge Clinical Impression: Abrasion, Pleural effusion Concussion Qualifiers: Encounter type: initial encounter Loss of consciousness presence/duration: without LOC Qualified Code(s): S06.0X0A - Concussion without loss of consciousness, initial encounter Facial laceration Qualifiers: Encounter type: initial encounter Qualified Code(s): S01.81XA - Laceration without foreign body of other part of head, initial encounter Condition: Stable Disposition: HOME, SELF-CARE Additional Instructions: Abrasions of the Face A scraping injury of the face can result in scarring. While not as prone to infection as abrasions elsewhere, a facial abrasion requires careful care to minimize scar. Usually the abrasions cannot be dressed. Standard treatment is to apply a thin coating of an antibiotic ointment to the scrapes frequently (two or three times a day) until the abrasions are healed. Wash the wound daily with a mild soap (like Phisoderm) to remove excess crusting and debris. Stay away from dirt and irritating chemicals. Complete healing may take anywhere from ten days to a month. The healing time depends on the depth of the abrasion and on the amount of crushing of underlying tissues which occurred. Once healing is complete, use a sunscreen on the area for about six months. If any signs of infection occur (swelling, redness, increasing tenderness, red streaks, profuse purulent drainage from the abrasion, tender lumps in the neck on the side of the abrasion, or fever), see the doctor immediately. Concussion You have suffered a concussion -- a temporary loss of certain brain functions due to a mild brain injury. The recovery is usually rapid and complete. The temporary problems occurring with a concussion can include loss of consciousness, dizziness, nausea, vomiting, and confusion. Repeat concussions can cause brain damage. In the future, avoid activities that will cause a blow to your head. Wear a helmet for sports such as snowboarding, biking, or skating. It's important that someone be with you for the first 24 hours. During this time, do not exercise or drive a vehicle. Do not take any pain medication stronger than acetaminophen unless prescribed by the physician. Any significant changes should be reported immediately to the physician. Signs of a problem may include: (1) Mental confusion (2) Incoordination or staggering (3) Repeated or forceful vomiting (4) Clear or bloody drainage from ear, mouth, or nose (5) Severe headache, not relieved by acetaminophen or prescribed pain medication (6) Failure to improve in 24 hours ####The x-ray of your head (CT) did not show any evidence of bleeding or bruising. However because the medications that you are on there is a possibility of delayed injury that can occur 12 to 36 hours later. It is very important that you review the discharge instructions and return immediately if y ou develop severe headaches abnormal vision nausea vomiting or confusion Please review the discharge instructions, they will tell you about your disease/injury and what you need to return to the ED for Return to the ED if you feel worse or can follow-up with your family doctor Keep your face dry for 24 hours. The skin glue on your nose should follow-up within the next 5 days if still present you can rub it gently with a cloth Remove the dressing on your right hand in 2 days and check the wound return if there is any redness or yellow drainage from the Steri-Strips as they peel back Is very important to keep the injured extremity elevated for the next 2 days to minimize swelling. Apply ice to the injured area 6 times a day for the next 2 days. Return immediately if you get an acute onset of severe pain, the extremity is cold or numb to the touch or if the fingers or toes are blue Follow-up with your orthopedic doctor in 1 week for your finger. Keep the splint on until then Follow-up with your family doctor in 2 to 3 days if not better otherwise in 1 week to follow-up your chest x-ray Referrals: JUDI ZULUAGA MD [Primary Care Provider] - Follow up as needed
--- NOTE | 2019-06-07 17:49 | RADIOLOGY REPORT (SQ) ---
EXAM DESCRIPTION: HAND RIGHT 2 VIEWS COMPLETED DATE/TIME: 06/07/2019 5:38 pm REASON FOR STUDY: post reduction right index COMPARISON: Earlier exam same date EXAM PARAMETERS: NUMBER OF VIEWS: Two view. TECHNIQUE: AP and lateral radiographic images acquired of the right hand. LIMITATIONS: None. FINDINGS: MINERALIZATION: Osteopenia. BONES: Grossly relocated 2nd PIP with persistent 3 mm distraction -subluxation on the oblique lateral projection. Similar nondisplaced 3 mm cortical fragment at the ulnar base of the middle phalanx. Moderate soft tissue swelling. No radiopaque foreign body. OTHER: No other significant finding. IMPRESSION: Grossly relocated 2nd PIP with persistent 3 mm distraction -subluxation on the oblique l ateral projection. Similar nondisplaced 3 mm cortical fragment at the ulnar base of the middle phala nx. TECHNICAL DOCUMENTATION: JOB ID: [id number]-72 2010 [employer]- All Rights Reserved Reading location - IP/workstation name: [email or web address]
[2019-06-07 18:09] LABS: ABSOLUTE EOSINOPHILS # (AUTO) 0.3 10^3/uL (0.0-0.6); ABSOLUTE LYMPHOCYTES (AUTO) 0.6 10^3/uL (0.5-4.7); ABSOLUTE MONOCYTES (AUTO) 0.4 10^3/uL (0.1-1.4); ABSOLUTE NEUT (AUTO) 3.9 10^3/uL (1.7-8.2); BASOPHILS % (AUTO) 0.8 % (0-2); EOSINOPHILS % (AUTO) 5.7 % (0-6); HEMATOCRIT 36.9 % (37.9-51.0); HEMOGLOBIN 12.4 g/dL (13.5-17.0); LYMPHOCYTES % (AUTO) 11.2 % (13-45); MEAN CORPUSCULAR HGB CONC 33.6 g/dL (32.0-36.0); MEAN CORPUSCULAR VOLUME 92 fl (80-97); MONOCYTES % (AUTO) 7.9 % (3-13); PLATELET COUNT 187 10^3/uL (150-450); RED CELL DISTRIBUTION WIDTH 14.8 % (11.5-14.0); SEGMENTED NEUTROPHILS % (AUTO) 74.4 % (42-78); TOTAL CELLS COUNTED % (AUTO) 100 %; WHITE BLOOD COUNT 5.2 10^3/uL (4.0-10.5)
[2019-06-07 18:27] LABS: ANION GAP 11 (5-19); BLOOD UREA NITROGEN 25 mg/dL (7-20); CALCIUM 9.1 mg/dL (8.4-10.2); CARBON DIOXIDE 27 mmol/L (22-30); CHLORIDE 100 mmol/L (98-107); GLUCOSE 93 mg/dL (75-110); POTASSIUM 3.8 mmol/L (3.6-5.0)
--- NOTE | 2019-06-07 19:09 | RADIOLOGY REPORT (SQ) ---
EXAM DESCRIPTION: CHEST SINGLE VIEW COMPLETED DATE/TIME: 06/07/2019 6:55 pm REASON FOR STUDY: Effusion COMPARISON: 12/09/2018 EXAM PARAMETERS: NUMBER OF VIEWS: One view. TECHNIQUE: Single frontal radiographic view of the chest acquired. RADIATION DOSE: NA LIMITATIONS: None. FINDINGS: LUNGS AND PLEURA: There is a right pleural effusion. There is opacification in the right lower lobe. MEDIASTINUM AND HILAR STRUCTURES: No masses. Contour normal. HEART AND VASCULAR STRUCTURES: Cardiomegaly. No christnia pulmonary edema. BONES: No acute findings. HARDWARE: Sternotomy wires. OTHER: No other significant finding. IMPRESSION: Cardiomegaly without christina pulmonary edema. Moderate right pleural effusion with airspa ce disease in the right lower lobe, atelectasis versus pneumonia. TECHNICAL DOCUMENTATION: JOB ID: [id number] [employer]- All Rights Reserved Reading location - IP/workstation name: [email or web address]
--- NOTE | 2019-06-07 19:11 | RADIOLOGY REPORT (SQ) ---
EXAM DESCRIPTION: HAND RIGHT 2 VIEWS COMPLETED DATE/TIME: 06/07/2019 6:55 pm REASON FOR STUDY: Post reduction COMPARISON: 06/07/2019 EXAM PARAMETERS: NUMBER OF VIEWS: Three views. TECHNIQUE: AP, lateral and oblique radiographic images acquired of the right hand. LIMITATIONS: None. FINDINGS: MINERALIZATION: Normal. BONES: No acute fracture or dislocation. No worrisome bone lesions. JOINTS: Postreduction images show that the subluxation of the 2nd proximal interphalangeal joint has been reduced. No fracture is seen. Degenerative joint changes is seen the distal interphalangeal danielle ints and in the wrist. SOFT TISSUES: No soft tissue swelling. No foreign body. OTHER: No other significant finding. IMPRESSION: Successful reduction. No fracture is seen. Degenerative joint disease. TECHNICAL DOCUMENTATION: JOB ID: [id number] [employer]- All Rights Reserved Reading location - IP/workstation name: [email or web address]
--- NOTE | 2019-06-07 19:28 | EKG REPORT ---
SEVERITY:- ABNORMAL ECG - ATRIAL FIBRILLATION, V-RATE 63-103 VENTRICULAR PREMATURE COMPLEX : Confirmed by: Alonso Lance MD 07-Jun-2019 19:27:36
[2019-06-07 21:07] VITALS: BP 123/81
== END 2019-06-07 20:58 | disposition home or self-care (01) ==
LOC: ER 15:06
DX: S06.0X0A Concussion without loss of consciousness, initial encounter (principal); S01.21XA Laceration without foreign body of nose, initial encounter; S63.280A Dislocation of proximal interphalangeal joint of right index finger, initial encounter; W18.11XA Fall from or off toilet without subsequent striking against object, initial encounter; Y93.89 Activity, other specified; Y92.511 Restaurant or cafe as the place of occurrence of the external cause; S60.819A Abrasion of unspecified wrist, initial encounter; W19.XXXA Unspecified fall, initial encounter; R55 Syncope and collapse; J90 Pleural effusion, not elsewhere classified; R60.0 Localized edema; M25.559 Pain in unspecified hip; G89.29 Other chronic pain; E78.00 Pure hypercholesterolemia, unspecified; I48.0 Paroxysmal atrial fibrillation; Z79.899 Other long term (current) drug therapy; Z79.02 Long term (current) use of antithrombotics/antiplatelets; Z87.891 Personal history of nicotine dependence
CPT/HCPCS: 36415; 70450; 71045; 72125; 80048; 85025; 93005; 93010; 99285